=== PATIENT | male | born 1970 ===

== ENCOUNTER 2024-11-21 08:40 | Outpatient (AMB) | payer OTHER, SELFPAY ==
--- NOTE | 2024-11-21 08:49 | A.OFFVIS_ITS ---
Vital Signs 11/21/24 08:50 Height 5 ft 6 in Weight 135 lb BMI 21.8 BP 114/84 Blood Pressure Location Rt brachial Position Sitting Pulse 82 Pulse Source Pulse Oximeter Pulse Oximetry (%) 98 Intake Visit Reasons: ENP-Restless leg Syndrome Intake Note: Patient referred by [facility] for restless leg syndrome Allergies No Known Allergies Allergy (Verified 11/21/24 08:51) Medication List - Last Reconciled 11/21/24 by Kathi Mejia MD acetaminophen mg PO albuterol sulfate 90 mcg/actuation (Ventolin HFA) inhalation alendronate mg PO calcium carbonate-vitamin D3 500 mg-10 mcg (400 unit) (Calcium 500 With D) tabs PO cholecalciferol (vitamin D3) (Vitamin D3) 100 mcg PO DAILY diclofenac sodium 1% topical nicotine (polacrilex) mg PO oxybutynin chloride ER mg PO DAILY HPI Comments Details: 54y/o Right handed female comes for evaluation of possible restless legs syndrome. she reports abnormal sensations in her legs - numbness everytime she sits or lies down . she denies tingling. sometimes she has discomfort in her thighs. No creepy crawly sensation. Moving her legs helps. It is worse when she sleeps and she needs to have a pillow between her legs and it wake she rup often she has daytime fatigue she is not sure if she snores. she has chronic back pain and some neck pain . she denies any abnormal jerks in her legs when she wakes up in the middle of the night - she tries to move her legs and hands and tries to sleep. she has frequent urination and urgency . [facility] Medical History (Updated 11/21/24 @ 09:23 by Kathi Mejia MD) Spinal stenosis, other region Back pain Hyperreflexia Numbness Restless leg syndrome Osteoporosis Chronic midline back pain Hyperparathyroidism Vitamin D deficiency Tobacco abuse Surgical History History of tonsillectomy and adenoidectomy History of right salpingo-oophorectomy H/O section History of cataract surgery Hx of cholecystectomy Family History Father HTN (hypertension) Diabetes Social History Alcohol intake: current Comment: occasional Patient Tobacco Use Status: Current everyday Tobacco user Physical Exam Vital Signs: Last Vital Signs Pulse 82 11/21/24 08:50 BP 114/84 11/21/24 08:50 Pulse Ox 98 11/21/24 08:50 BMI result Body Mass Index 21.8 Const General: cooperative, healthy appearing and comfortable Nutritional Appearance: average body habitus Orientation/consciousness: patient oriented x3 Eyes Pupils: Equal, round and reactive pupils present Neuro Other: neck tightness Increased one monica LE and right UE Mallampatti grade 4 General: patient oriented x3, gait normal, moves all extremities and no focal motor deficits Cranial nerves: Yes Equal, round and reactive pupils present, Yes Bilaterally intact EOM present, Yes Nystagmus not present, Yes Normal facial strength present, Yes Midline tongue present and Yes Symmetric palate elevation present Cognition (Neuro): normal cognition Gait exam (Neuro): Normal gait present Motor exam (neuro): 5/5 motor strength present throughout Deep tendon reflexes (DTR's): Right triceps reflex intensity grade: 3+, Left triceps reflex intensity grade: 3+, Rt Biceps (C5, C6): 3+, Left biceps reflex intensity grade: 3+, Right brachioradialis reflex intensity grade: 3+, Left brachioradialis reflex intensity grade: 3+, Right patellar reflex intensity grade: 4+, Left patellar reflex intensity grade: 4+, Right ankle reflex intensity grade: 4+ and Left ankle reflex intensity grade: 4+ Coordination: [id number] test normal Assessment & Plan Assessment & Plan (1) Numbness: Code(s): R20.0 - Anesthesia of skin Category: Medical (2) Hyperreflexia: Code(s): R29.2 - Abnormal reflex Category: Medical (3) Back pain: Code(s): M54.9 - Dorsalgia, unspecified Category: Medical Qualifiers: Back pain location: low back pain Chronicity: chronic Back pain laterality: midline Sciatica presence: without sciatica Qualified Code(s): M54.50 - Low back pain, unspecified; G89.29 - Other chronic pain Plan MRI LS spine to r/o spinal stenosis ? cauda equina syndrome X ray C spine Will consider EMG LE Home sleep study next visit. Orders: Orders XR cervical spine 2V Today M54.2 - Cervicalgia MR lumbar spine wo con Today G89.29 - Other chronic pain, M48.00 - Spinal stenosis, site unspecified, M54.50 - Low back pain, unspecified, R20.0 - Anesthesia of skin, R29.2 - Abnormal reflex Coding Level of Care Code New Pt Level 4 (69726) Complex EM visit Add On G2211 Diagnoses Numbness R20.0 Hyperreflexia R29.2 Chronic midline low back pain without sciatica M54.50; G89.29 Back pain location: low back pain Chronicity: chronic Back pain laterality: midline Sciatica presence: without sciatica
[2024-11-21 08:50] VITALS: BP 114/84; PULSE 82; O2SAT 98; BMI 21.8
--- OUTSIDE RECORDS SUMMARY | 2024-11-21 09:12 | XMS_ITS | Encounter Summary ---
Author Organization [facility] Address [address] [place] [address] Care Team Providers Care Motor Vehicle Escort Driver Name Role Phone Vinny Davalos MD Primary Care Provider [phone] Reason for Visit * Consultation (Routine) - Authorized Specialty Diagnoses / Procedures Referred By Contwilly t Referred To Contact Physical Therapy Diagnoses Chronic midline low back pain, unspecified whether sciatica present Vinny Davalos MD 175 [facility] [address] [place] [address] Phone: tel: fax: [address] [address] Phone: tel: fax: Referral ID Status Reason Start Date Expiration Date Visits Requested Visits Authorized [id number] Authorized Specialty Services Required 10/11/2024 10/11/2025 21 21 Encounter Details Date Type Department Care Team (Late st Contact Info) Description 11/08/2024 11:00 AM EST Treatment [facility] [address] [address] Lorna Marquis PT Chronic midline low back pain, unspecified whether sciatica present (Primary Dx) Social History Tobacco Use Types Packs/Day Years Used Date Smoking Tobacco: Every Day Cigarettes Smokeless Tobacco: Never Alcohol Use Standard Drinks/Week Comments Yes 0 (1 standard drink = 0.6 oz pur e alcohol) rare Comments No Sex and Gender Information Value Date Recorded Sex Assigned at Female 10/20/2024 12:09 PM EST Legal Sex Female 5:14 AM EST Gender Identity Female 10/20/2024 12:09 PM EST Sexual Orientation Straight 10/20/2024 12 :09 PM EST Occupation Industry Job Start Date Job End Date Unemplloyed Not on file Not on file Not on file documented as of this encounter Progress Notes * Lorna Marquis PT - 11/08/2024 11:00 AM EST [facility] - Outpatient PHYSICAL THERAPY DAILY TREATMENT NOTE - OP Date: 11/08/2024 Visit Number: 2 Patient Name: Lizabeth Pittman : 1970 Age: 53 y.o. Gender: female Diagnosis: ICD-10-CM ICD-9-CM 1. Chronic midline low back pain, unspecified whether sciatica present M54.50 724.2 G89.29 338.29 Date of Onset/Surgery: 11/02/2014 Referring Provider: Vinny Davalos MD Insurance: Payor: [employer] PLAN / Plan: WELLSENSE MEDICAID / Product Type: *No Product type* / Patient Identified by: Lorna Marquis, SEAN Language: Speaks and understands Bengali as preferred language with no language interpreter required Medications: Current Outpatient Medications on File Prior to Visit Medication Sig Dispense Refill acetaminophen (TYLENOL) 500 mg tablet Take 1 tablet (500 mg total) by mouth every 6 (six) hours if needed for mild pain. 90 tablet 3 albuterol HFA (PROAIR HFA ; PROVENTIL HFA ; VENTOLIN HFA) 90 mcg/actuation inhaler Inhale 2 puffs by mouth every 6 (six) hours if needed for wheezing or shortness of breath (Cough). For up to 30 days alendronate (FOSAMAX) 70 mg tablet Take 1 tablet (70 mg total) by mouth every 7 (seven) days. For 360 days 4 each 11 calcium carbonate-vitamin D3 500 mg-15 mcg (600 unit) tablet Take 1 tablet by mouth 2 (two) times aday. 180 tablet 3 cholecalciferol (VITAMIN D-3) 50 mcg (2,000 unit) tablet Take 1 tablet (2,000 Units total) by mouth1 (one) time each day. diclofenac (VOLTAREN) 1 % topical gel Apply 2 g topically 2 (two) times a day. 100 g 3 nicotine polacrilex (NICORETTE) [address] EACH (4 MG TOTAL) INTO MOUTH BETWEEN CHEEK AND GUMIF NEEDED FOR SMOKING CESSATION. 100 each 3 oxyBUTYnin XL (DITROPAN-XL) 5 mg 24 hr tablet Take 1 tablet (5 mg total) by mouth 1 (one) time eachday. Do not crush, chew, or split. 30 tablet 5 No current facility-administered medications on file prior to visit. Allergies: has No Known Allergies. Precautions: osteoporosis Fall risk: No SUBJECTIVE Subjective Report: Patient reports soreness in back due to increased activity the past few days. Chart Reviewed: Yes Pain: 6-7/ pre session, 2-3 post session TREATMENT INTERVENTION: Therapeutic Exercise: Nustep L4 x 5 min lower extremity and upper extremity Supine bridge x 5 with 1-2 sec hold, x 10 with 5 sec hold Sidelying hip abduction x 8-10 each Seated hip adduction ball x 10, 5 sec hold Modality: IFC e-stim to bilateral low back (amplitude to tolerance=7) x 10 min Home exercise program: Sidelying hip abduction x 7-10 each Supine bridge x 10, 5 sec hold ASSESSMENT/Response to Treatment Good Pain reduced after e-stim applied. Needed cueing for sidelying hip abduction form. Discussed difference of strain vs. Pain with exercises. Patient Education: Education provided: home exercise program and monitor e-stim response Education Provided To: Patient utilizing Explanation mode(s) of education Response to Education: Verbal Understanding PLAN POC Development/Review: No Change in the Plan of Care; Participants: Patient Interventions Time Entry: Modalities: 10 min Therapeutic procedures: Therapeutic Exercise Time Entry: 20 Total Treatment Time: 30 Documentation completed by Lorna Marquis PT documented in this encounter Plan of Treatment Upcoming Encounters Date Type Department Care Team (Late st Contact Info) Description 11/22/2024 11:00 AM EST Treatment [facility] [address] [phone] Turner Piper PTA 11/29/2024 11:00 AM EST Treatment [facility] [address] [phone] Rizwan Duncan, ACID MAKER 12/06/2024 11:00 AM EDT Treatment [facility] [address] [address] Rizwan Duncan, ACID MAKER 12/13/2024 11:00 AM EDT Treatment [facility] [address] [address] Lorna Marquis, PT 01/23/2025 10:[address] [facility] [address] [place] [address] 01/23/2025 11:15 AM EDT Appointment [facility] [address] [place] [address] 10/16/2025 11:30 AM EST Office Visit Internal Medicine [address] [address] Vinny Davalos MD [address] [address] documented as of this encounter Visit Diagnoses Diagnosis Chronic midline low back pain, unspecified whether sciatica present- Primary documented in this encounter Additional Health Concerns Infection Onset Date Last Indicated Resolved Time ESBL 09/14/2024 09/14/2024 documented as of this encounter Care Teams Motor Vehicle Escort Driver Relationship Specialty Start Date End Date Vinny Davalos MD [address] [place] [address] PCP - General Internal Medicine 04/25/22 documented as of this encounter
--- OUTSIDE RECORDS SUMMARY | 2024-11-21 09:12 | XMS_ITS | Encounter Summary ---
Author Organization [facility] Address [address] [place] [address] Care Team Providers Care Squirt Machine Operator Name Role Phone Vinny Davalos MD Primary Care Provider [phone] Reason for Visit * Consultation (Routine) - Authorized Specialty Diagnoses / Procedures Referred By Contwilly t Referred To Contact Physical Therapy Diagnoses Chronic midline low back pain, unspecified whether sciatica present Vinny Davalos MD 175 [facility] [address] [place] [address] Phone: tel: fax: [address] [address] Phone: tel: fax: Referral ID Status Reason Start Date Expiration Date Visits Requested Visits Authorized [id number] Authorized Specialty Services Required 10/11/2024 10/11/2025 21 21 Encounter Details Date Type Department Care Team (Late st Contact Info) Description 11/15/2024 11:00 AM EST Treatment [facility] [address] [phone] Lorna Marquis PT Chronic midline [...] Progress Notes * Lorna Marquis PT - 11/15/2024 11:00 AM EST [facility] - Outpatient PHYSICAL THERAPY DAILY TREATMENT NOTE - OP Date: 11/15/2024 Visit Number: 3 Patient Name: Lizabeth Pittman : 1970 Age: 53 y.o. Gender: female Diagnosis: ICD-10-CM ICD-9-CM 1. Chronic midline low back pain, unspecified whether sciatica present M54.50 724.2 G89.29 338.29 Date of Onset/Surgery: 11/02/2014 Referring Provider: Vinny Davalos MD Insurance: Payor: [employer] PLAN / Plan: WELLSENSE MEDICAID / Product Type: *No Product type* / Patient Identified by: Lorna Marquis, SEAN Language: Speaks and understands Mohawk as preferred language with no yarn twister required Medications: Current Outpatient Medications on File [...] Fall risk: No SUBJECTIVE Subjective Report: Patient notes pain has not been bad this past week. Feels better. Chart Reviewed: Yes Pain: 10/07 TREATMENT INTERVENTION: Therapeutic Exercise: Nustep L5 x 5 min lower extremity and upper extremity Supine bridge x 10 with 5 sec hold Sidelying hip abduction x 10 each Hooklying hamstring stretch strap 3 x 15 sec hold Hooklying hip adduction ball x 10, 5 sec hold Modality: IFC e-stim to bilateral low back (amplitude to tolerance=7) x 10 min Home exercise program: Sidelying hip abduction x 7-10 each Supine bridge x 10, 5 sec hold Hooklying hamstring stretch strap (dog leash) 3 x 15-20 sec ASSESSMENT/Response to Treatment Good Less pain this past week, so continued similar treatment as last session. Min cueing for form with sidelying hip abduction. Patient Education: Education provided: home exercise program and monitor e-stim response Education Provided To: Patient utilizing Explanation and Printed Material mode(s) of education Response to Education: Verbal [...] Info) Description 11/22/2024 11:00 AM EST Treatment [facility] [address] [phone] Turner Piper, CHERRY PITTER 11/29/2024 11:00 AM EST Treatment [facility] [address] [address] Rizwan Duncan, CHERRY PITTER 12/06/2024 11:00 AM EDT Treatment [facility] [address] [phone] Rizwan Duncan, CHERRY PITTER 12/13/2024 11:00 AM EDT Treatment [address] [address] Lorna Marquis, PT 01/23/2025 10:30 AM EDT Appointment [facility] [address] [place] [address] 01/23/2025 11:15 AM EDT Appointment [facility] [address] [place] [address] 10/16/2025 11:30 AM EST Office Visit Internal Medicine [address] [phone] Vinny Davalos MD [address] [address] documented as of this encounter Visit Diagnoses Diagnosis Chronic midline low back pain, unspecified whether sciatica present- Primary documented in this encounter Additional Health Concerns Infection Onset Date Last Indicated Resolved Time ESBL 09/14/2024 09/14/2024 documented as of this encounter Care Teams Squirt Machine Operator Relationship Specialty Start Date End Date Vinny Davalos MD [address] [place] [address] PCP - General Internal Medicine 04/25/22 documented as of this encounter
--- OUTSIDE RECORDS SUMMARY | 2024-11-21 09:12 | XMS_ITS | Data Portability ---
Author Organization [place] [facility], Allergy Address [address] [address] Care Team Providers Care Electroplater Helper Name Role Phone FALGUNI JOYNER Primary Care Provider [phone] Assessment Encounter Date Assessment Date Assessment LastModified by Organization Details LastModified Time 06/06/2024 06/06/2024 53-year-old female presents today for ear blockage and concern for cerumen. A small amount of cerumen was removed. Middle ears were well aerated. Audiometric testing showed a mild sensorineural hearing loss with type A tymps. We did discuss that tobacco use can also contribute to a feeling of ear blockage. I would recommend repeat exam in a year with audiogram in 2 years or sooner for acute change. [email or web address] Not available 06/12/2024 07:16:17 Plan of Treatment Reminders Order Date Submit Date Provider Last Modified By Organization Details Last Modified Time Details Appointments Establish ed 15 2024 09:00A M SAMREEN STRONG MD Not available Not available Not available Lab None recorded. Referral None recorded. Procedures None recorded. Surgeries None recorded. Imaging None recorded. Medication Orders None recorded. Patient TargetsNo targets recorded. Patient InstructionsNo instructions recorded. Reason for Referral None Reported. Results Created Date Observation Date Name Description Value Unit Range Abnormal Flag Note LastModifiedBy Organization Detail LastModifiedTime 07/04/2006/06/2024 audio gram No observ ation record ed. [email or web address] Not Available 06/28 11:53:11 Result Notes None recorded. Problems Name Problem SNOMED Code Status Onset Date Resolution Date Notes Provider Name and Address Organization Details Recorded Time Sensorineural hearing loss of bilateral ears 058737419 Active 2023 NIKOLE VALENCIA , AUD 100 [facility], [address], [place], [address], [facility] - [facility] 09:57:57 Problem Notes None recorded. Procedures Surgical History Date Name Laterality Status Provider Name and Address Organization Details Recorded Time 06/06/2024 Comp Audio with Tymps (39486 & 68249) completed NIKOLE VALENCIA, AUD 100 [facility] [address], [place], [address], [facility] - [facility] 06/06/2024 09:57:41 Imaging Results Imaging Date Name Status LastModified by Organiz ation Details LastModified Time 06/06/2024 audiogram completed [email or web address] Information n ot available 07/08/2024 11:53:11 Procedure Notes None recorded. Medical Equipment None Reported. Medications Name Sig Start Date Stop Date Status Note LastModified by Organization Details LastModified Time acetaminophe n 325 mg tablet TAKE 1 TABLET BY MOUTH EVERY 6 HOURS FOR MILD PAIN. active Not Available Not Available N ot Available alendronate 70 mg tablet TAKE 1 TABLET BY MOUTH EVERY 7 DAYS FOR 360 DAYS. active Not Available Not Available No t Available Debrox 6.5 % ear drops PLEASE SEE ATTACHED FOR DETAILED DIRECTIONS active Not Available Not Available N ot Available ketorolac 0.5 % eye drops active Not Available Not Available Not Available nicotine 21 mg/24 [address] daily transdermal patch [address] PATCH ONTO THE SKIN EVERY 24 HOURS active Not Available Not Available No t Available docusate sodium 100 mg capsule TAKE 1 CAPSULE BY MOUTH ONCE A DAY.*NOT COVERED* active Not Available Not Available No t Available ibuprofen 600 mg tablet TAKE 1 TABLET BY MOUTH EVERY 6 HOURS. MAX IS 2400MG A DAY. active Not Available Not Available No t Available fluticasone propionate 50 mcg/actuatio n nasal spray,suspen amparo SPRAY 2 SPRAYS INTO EACH NOSTRIL EVERY DAY active Not Available Not Available No t Available loratadine 10 mg tablet active Not Available Not Available Not Available Ventolin HFA 90 mcg/actuatio n aerosol inhaler PLEASE SEE ATTACHED FOR DETAILED DIRECTIONS active Not Available Not Available N ot Available oxycodone 5 mg tablet TAKE 1 TABLET BY MOUTH EVERY 4 HOURS NEEDED FOR MODERATE PAIN SCALE OF 4-6. active Not Available Not Available No t Available Vitamin D3 50 mcg (2,000 unit) tablet TAKE 1 TABLET BY MOUTH EVERY DAY active Not Available Not Available No t Available Oyster Shell Calcium-Irais min D3 500 mg-10 mcg (400 unit) tablet TAKE 1 TABLET BY MOUTH TWICE A DAY active Not Available Not Available No t Available Vitals Date Recorded Body height Body mass index (BMI) Body weight Provider Name and Address Organization Details Last Updated DateTime 06/06/2024 167.64 cm 20.7 kg/m2 93041.82 g Evangelista Casper [place] - [facility] 06/06/2024 09:10:15 Social History None recorded. Functional Status None recorded. Mental Status None recorded. Family History Nothing Reported. Medical History Condition Response Allergies/Hayfever N Gynecological HistoryNo gynecological history recorded. Obstetrics History GPAL:G 0 P 0 0 0 0 Past Encounters Encounter ID Performer Location Encounter Start Date Encounter Closed Date Diagnosis/Indication Diagnosis SNOMED-CT Code Diagnosis ICD10 Code Diagnosis Note [id number] SAMREEN STRONG MD [facility] [address] [address] 06/06/2024 08:57:13 06/06/2024 10:22:26 Sensorineural hearing loss of bilateral ears 253316427 H90.3 Audiologic al evaluation results: Right ear: {{Normal* Normal through 2 kHz Mild M oderate Mo derately-s evere Natalie re Profoun d}} {{hearing sloping to a mild* slop ing to a moderate s loping to moderately severe slo ping to severe slo ping to profound f lat high frequency low frequency mid frequency cookie bite gomes curve}} {{with sen sorineural hearing loss with* cond uctive hearing loss with mixed hearing loss with}} {{excellen t* good fa ir poor no measurable }} word recognitio n. Left ear: {{Normal* Normal through 2 kHz Mild M oderate Mo derately-s evere Natalie re Profoun d}} {{hearing sloping to a mild* slop ing to a moderate s loping to moderately severe slo ping to severe slo ping to profound f lat high frequency low frequency mid frequency cookie bite gomes curve}} {{with sen sorineural hearing loss with* cond uctive hearing loss with mixed hearing loss with}} {{excellen t* good fa ir poor no measurable }} word recognitio n. Tympanomet ry: Right Ear:{{Type A* Type As Type Ad Type C Type C, shallow & rounded Ty pe B Type B with large volume Cou ld not maintain a hermetic seal}} Left Ear:{{Type A* Type As Type Ad Type C Type C, shallow & rounded Ty pe B Type B with large volume Cou ld not maintain a hermetic seal}} Health Concerns Section Related Observation LastModified by Organization Detai ls LastModified Time None Recorded Concern Status LastModified by Organization Details LastModified Time None Recorded Advance Directives Directive None Recorded Payers Encounter Date Sequence Insurance Name Policy Number Policy Phan Covered Member ID Phan Member ID Guarantor Name 06/06/2024 1 [facility] (MEDICAID REPLACEMENT - HMO) [facility] Lizabeth Pittman [id number] Lizabeth Pittman Notes Date Note Type Note Provider Name and Address Organization Details Recorded Time 06/06/2024 text/html 53 yo F with frequent blockage of the ears. Gets some dizziness when it is blocked. Denies frequent infections. Occasional tinnitus. Occasional trouble with hearing. No allergies. SAMREEN STRONG MD [address] [place] [address], [phone], [place] - [facility] 06/12/2024 07:16:21 OBGyn Episode No OBEpisode recorded.
--- OUTSIDE RECORDS SUMMARY | 2024-11-21 09:12 | XMS_ITS | Encounter Summary ---
Author Organization [facility] Address [address] [place] [address] Care Team Providers Care Locomotive Engineer Diesel Name Role Phone Vinny Davalos MD Primary Care Provider [phone] Reason for Visit * Consultation (Routine) - Authorized Specialty Diagnoses / Procedures Referred By Contwilly t Referred To Contact Physical Therapy Diagnoses Chronic midline low back pain, unspecified whether sciatica present Vinny Davalos MD 175 [facility] [address] [place] [address] Phone: tel: fax: [address] [address] Phone: tel: fax: Referral ID Status Reason Start Date Expiration Date Visits Requested Visits Authorized [id number] Authorized Specialty Services Required 10/11/2024 10/11/2025 21 21 Encounter Details Date Type Department Care Team (Latest Contact Info) Description 11/02/2024 11:30 AM EST Evaluation [address] [address] Lorna Marquis PT Chronic midline [...] Progress Notes * Lorna Marquis PT - 11/02/2024 11:30 AM EST [facility] - Outpatient PHYSICAL THERAPY EVALUATION Date: 11/02/2024 Visit Number: 1 Patient Name: Lizabeth Pittman : 1970 Age: 53 y.o. Gender: female Diagnosis: ICD-10-CM ICD-9-CM 1. Chronic midline low back pain, unspecified whether sciatica present M54.50 724.2 Ambulatory referral to Physical Therapy and Athletic Training G89.29 338.29 Date of Onset/Surgery: 11/02/2014 Referring Provider: Vinny Davalos MD Insurance: Payor: [employer] PLAN / Plan: [employer] MEDICA[employer] / Product Type: *No Product type* / Patient identified by: Lorna Marquis PT Language: Speaks and understands Micronesian as preferred language with no produce inspector required Chart Reviewed: Yes Medications: Current Outpatient Medications on File Prior [...] facility-administered medications on file prior to visit. Discussed current medications that may impact therapy. Medication list obtained and reviewed. Referto document in medical record. Advised Patient to contact MD with any questions regarding medications and importance of managing medication information. has a past medical history of Hyperparathyroidism ([facility]) (10/08/2022), Osteoporosis, Ovarian torsion (2023), Tobacco abuse (09/19/2010), and Vitamin D deficiency (12/23/2022). has a past surgical history that includes Section; Tubal ligation; Cholecystectomy; and Other surgical history (Right, 04/10/2024). has No Known Allergies. Precautions: osteoporosis Past Medical History to be aware of: Smoker Concurrent Services: No Concurrent Services SUBJECTIVE HISTORY: Patient presents to clinic with low back pain that began many years ago. Went to PT for this in the past for this over 10 years ago, which helped. She reports having osteoporosis, diagnosed 2-3 years ago (takes medication for this). She also reports having scoliosis which she was diagnosedwith as an adult. She does note she does not eat much. COURSE OF CURRENT CONDITION: worse PREVIOUS EPISODES: yes PREVIOUS MEDICAL CARE/THERAPY: patches- allergic, ice- short term effective, previous PT (electrodes helped a lot) PREVIOUS SURGERIES: see epic (no back surgeries) DIAGNOSTIC TESTS: bone density- osteoporosis RED FLAGS: no bowel/bladder incontinence reported OCCUPATION: none LEISURE/ACTIVITY LEVEL: play son tablet, clean house, watch TV, shopping once a week; denies general exercise; used to walk dog but that was hurting her back because he was yanking her (stopped in June) GOALS: get more exercise Home Environment: , son, daugther can help heavier lifting Prior Level of Function: less pain Current Functional Limitations: Reported by Patient limited with prolonged standing, prolonged sitting, prolonged walking, bending Pain: Current level of pain 3/10; Pain at worst over the past week 7/10 and at best is a 0/10 Pain/symptoms described as: bad ache Pain is located: whole lower back; does get bilateral leg numbness and legs feel like they might give out Aggravating factors include: prolonged standing or prolonged sitting >30 min, prolonged walking (especially after shopping), bending over (laundry and wood stove) Easing factors include: ice 2x a week, sitting at first, prescribed medication like tylenol as needed, laying on back Is the patient at Risk for Falls: No OBJECTIVE Vitals: There were no vitals filed for this visit.; Gait: amb unassisted, bilateral toe in Posture/Observation: flat lumbar spine, scapular winging bilaterally Palpation: tenderness and rigidity of lower thoracic and upper lumbar paraspinals bilaterally Lumbar Spine ROM Active Lumbar flexion (0-60) Mid stover pulling in back Lumbar extension (0-35) 50% P Lumbar side bending R (0-25) 50-75% P Lumbar side bending L (0-25) 50-75% P Lumbar Rotation R (0-20) 75% limited P Lumbar Rotation L (0-20) 25% limited P Hip ROM: Flexion R 100 deg P, L 90 deg P ER R min limited P, L moderate limited P IR moderate limited P bilaterally Hip Strength RIGHT LEFT Flexion 4+/5 P 4+/5 P Extension bridge/5 bridge/5 Abduction 4-/5 4-/5 Adduction NT/5 NT/5 Internal Rotation 4+/5 4+/5 External Rotation 4/5 4/5 Special Tests: - straight leg raise + hamstring 90-90 bilateral Other Assessments: 6 min walk test 1050 feet, 2/10 pain, O2 sat 100 and HR 72 post test TREATMENT INTERVENTION Procedures: Sidelying hip abduction x 10 each Supine bridge x 10, 1-2 sec hold Home exercise program: Above exercises to be done once a day, daily ASSESSMENT/Response to Treatment: Lizabeth Pittman is a 53 y.o. female presenting for outpatient physical therapy evaluation with complaints of chronic mid/low back pain. Signs and symptoms may be related to degenerative changes and/ormyofascial. Significant clinical findings include: decreased lumbar ROM, decreased hip ROM, and reduced core/hip strength. Patients progress may be limited by nutrition and smoking history. Skilled Physical therapy is medically necessary to address these limitations. Rehabilitation Potential: Rehab Potential: Condition Has Potential to Improve Motivation for Rehab: Good Support Structure: Good Learning Needs: Were Patient Learning needs assessed: Yes Learning Preferences: Demonstration and Printed Materials Barriers to Learning: No Barriers to Learning Patient Education: [x] Discussed, with patient and/or caregiver, the recommended plan of care/goals, the importance oftherapy and appointment compliance in order to achieve goals in a timely manner. Education provided: home exercise program and plan of care Education Provided To: Patient utilizing Explanation and Printed Material as mode(s) of education. Response to Education: Verbal Understanding and Demonstrated Skills GOALS Short Term Goals (will be achieved in 4 weeks) 1. Initiate home exercise program. 2. Pain will be improved by 2-3 points on VAS. 3. Patient will improve core/hip strength by 1/3 grade on manual muscle testing. 4. Patient will improve lumbar ROM by 25%. Gastroenterology Nurse Goals (will be achieved in 8-12 weeks) 1. Patient will be independent with home exercise program to maintain therapeutic gains. 2. Patient will be able to walk around grocery store with min to no pain 3. Patient will be able to sit for 60 min with min to no pain. PLAN POC Development/Review: Initial Evaluation; Participants: Patient Skilled Therapy Plan Required: YES- Reasons for Rehab and Medical Necessity -- Return to Premorbid Environment Frequency/Duration of Treatment: patient can only attend 1x a week for 6 weeks or until goals are met Plan for next session(s): Nustep, core/hip strengthening in safe positions for osteoporosis, gentlelumbar/hip ROM. Planned Therapy Interventions: Cold Pack, E-Stim -- Unattended, Gait Training, Hot Pack, Kinesiotaping, Manual Therapy, Neuromuscular Re-education, Patient / Family Education, Soft Tissue Mobility, TENS, Therapeutic Activity, Therapeutic Exercise, and Ultrasound Recommended Consults: none Equipment Recommended: none; Equipment Provided: none BILLING TOTAL TREATMENT TIME: 46 Minutes Evaluation Medium Complexity Justification ::: A history of present problem with 1 - 2 personal factors and/or co-morbidities that impact the plan of care and An examination of body systems using standardized tests and measures in addressing a total of 3 or more elements from any of the following body structures and functions, activity limitations, and/or participation restrictions Documentation completed by Lorna Marquis PT [address] [address] Dept: [phone] Dept PATIENT NAME: Lizabeth Pittman : 1970 Certification: This is to certify that the above named patient, who is under my care, requires skilled Therapy services as described in the above treatment plan. I further certify that the services outlined in this plan are skilled and medically necessary. I have reviewed this plan for rehabilitation services, and I recommend that these services continue to meet the above stated goals and plan. SIGNATURE: DATE Vinny Davalos MD Referring provider documented in this encounter Plan of Treatment Upcoming Encounters Date Type Department Care Team (Late st Contact Info) Description 11/22/2024 11:00 AM EST Treatment [address] [phone] Turner Piper, SOLAR SALES REP 11/29/2024 11:00 AM EST Treatment [address] [address] Rizwan Duncan, [employer] SALES REP 12/06/2024 11:00 AM EDT Treatment [facility] [address] [address] Rizwan Duncan, [employer] SALES REP 12/13/2024 11:00 AM EDT Treatment [address] [address] Lorna Marquis, PT 01/23/2025 10:30 AM EDT Appointment [facility] [address] [place] [address] 01/23/2025 11:15 AM EDT Appointment [facility] [address] [place] [phone] 10/16/2025 11:30 AM EST Office Visit Internal Medicine - [place] 175 [facility] [address] [place] [id number] Vinny Davalos MD 175 [facility] [address] [place] [address] documented as of this encounter Visit Diagnoses Diagnosis Chronic midline low back pain, unspecified whether sciatica present- Primary documented in this encounter Orders Outpatient Referral Count Last Ordered Date Fir st Ordered Date AMB REFERRAL TO PHYSICAL [facility] 1 11/02/2024 documented in this encounter Additional Health Concerns Infection Onset Date Last Indicated Resolved Time ESBL 09/14/2024 09/14/2024 documented as of this encounter Care Teams Locomotive Engineer Diesel Relationship Specialty Start Date End Date Vinny Davalos MD [address] [place] [address] PCP - General Internal Medicine 04/25/22 documented as of this encounter
--- OUTSIDE RECORDS SUMMARY | 2024-11-21 09:12 | XMS_ITS | Clinical Summary ---
Author Organization 175 [facility] Address [address] [place] [address] Phone Care Team Providers Care Packaging Specialist Name Role Phone Vinny Davalos MD Primary Care Provider Allergies No known active allergies Medications cholecalciferol (VITAMIN D-3) 50 mcg (2,000 unit) tablet Take 1 tablet (2,000 Units total) by mouth 1 (one) time each day. 4 Active albuterol HFA (PROAIR HFA ; PROVENTIL HFA ; VENTOLIN HFA) 90 mcg/actuation inhaler Inhale 2 puffs by mouth every 6 (six) hours if needed for wheezing or shortness of breath (Cough). For up to 30 days Active oxyBUTYnin XL (DITROPAN-XL) 5 mg 24 hr tabletIndicatio ns:OAB (overactive bladder) Take 1 tablet (5 mg total) by mouth 1 (one) time each day. Do not crush, chew, or split. 30 tablet 5 4 09/14/20 25 Active alendronate (FOSAMAX) 70 mg tablet Take 1 tablet (70 mg total) by mouth every 7 (seven) days. For 360 days 4 each 11 5 10/06/19 26 Active calcium carbonate-vitam in D3 500 mg-15 mcg (600 unit) tablet Take 1 tablet by mouth 2 (two) times a day. 180 tablet 3 5 10/11/19 26 Active diclofenac (VOLTAREN) 1 % topical gel Apply 2 g topically 2 (two) times a day. 100 g 3 5 04/09/20 25 Active acetaminophen (TYLENOL) 500 mg tablet Take 1 tablet (500 mg total) by mouth every 6 (six) hours if needed for mild pain. 90 tablet 3 5 04/09/20 25 Active nicotine polacrilex (NICORETTE) [address] 1 EACH (4 MG TOTAL) INTO MOUTH BETWEEN CHEEK AND GUM IF NEEDED FOR SMOKING CESSATION. 100 each 3 5 12/11/19 25 Active Active Problems Problem Noted Date Diagnosed Date Post-menopausal osteoporosis 09/14/2024 Tobacco abuse 07/04/2024 Restless leg syndrome 10/09/2023 Vitamin D deficiency 12/23/2022 Hyperparathyroidism 10/08/2022 Dyspepsia 06/17/2022 Overview (07/04/2024): Last Assessment & Plan: Complaint of abdominal pain after greasy food especially pizza. No belching or heartburn, weight loss or weakness. Pain is colicky in nature and resolved by its own. Plan: Start famotidine 40 mg daily Refer the patient for ultrasonography to rule out any gallstone. Stool for H. Pylori. Encounters Date Type Department Care Team Description 11/15/2024 11:00 AM EST Treatment [address] [phone] Lorna Marquis, PT Chronic midline low back pain, unspecified whether sciatica present (Primary Dx) 11/08/2024 11:00 AM EST Treatment [address] [phone] Lorna Marquis, PT Chronic midline low back pain, unspecified whether sciatica present (Primary Dx) 11/02/2024 11:30 AM EST Evaluation [address] [phone] Lorna Marquis, PT Chronic midline low back pain, unspecified whether sciatica present (Primary Dx) 10/11/2024 11:30 AM EST Office Visit Internal Medicine [address] [phone] Vinny Davalos MD Encounter for annual physical exam (Primary Dx); Chronic midline low back pain, unspecified whether sciatica present; Colon cancer screening; Encounter for screening mammogram for malignant neoplasm of breast; Encounter for osteoporosis screening in asymptomatic postmenopausal patient; Hyperparathyroidism (CMS/HCC); Vitamin D deficiency; Tobacco abuse; Other abnormal glucose; Encounter for lipid screening for cardiovascular disease; Other fatigue; Osteoporosis, unspecified osteoporosis type, unspecified pathological fracture presence; Tobacco dependency; Restless leg syndrome 10/10/2024 10:30 AM EST Office Visit Pulmonolgy - [place] 175 [facility] [address] [place] [phone] Katt Espino MD Chronic obstructive pulmonary disease, unspecified COPD type (CMS/HCC) (Primary Dx); Smoker; Lung nodules 09/19/2024 Telephone Obstetrics & Gynecology [facility] [address] [place] [phone] Aneta Antoine MA Results 09/14/2024 11:15 AM EST Office Visit Obstetrics & Gynecology [facility] [address] [place] [phone] Latrice Jaquez CNM Encounter for well woman exam with routine gynecological exam (Primary Dx); UTI symptoms; Screening breast examination; Screening for malignant neoplasm of cervix; Post-menopausal osteoporosis; OAB (overactive bladder) from Last 3 Months Immunizations Name Administration Dates Next Due PPD Test 02/27/2014 Tdap Tetanus diptheria acell ular pertussis (Boostrix; Adacel) 7yo and older 04/07/2023,06/02/2007 Surgical History Surgery Date Site/Laterality Comments SECTION PROCEDURE: HISTORICAL ; COMMENT: x one TUBAL LIGATION PROCEDURE: HISTORICAL TUBAL LIGATION CHOLECYSTECTOMY PROCEDURE: HISTORICAL CHOLECYSTECTOMY OTHER SURGICAL HISTORY 04/10/2024 Right PROCEDURE: NE SALPINGO-OOPHORECTOMY COMPL/PRTL UNI/BI SPX; COMMENT: Laparoscopic right Dr Yonatan Barraza Medical History Medical History Date Comments Hyperparathyroidism (CMS/HCC) 10/08/2022 DX :Hyperparathyroidism (HCC) Vitamin D deficiency 12/23/2022 DX:Vitamin D deficiency Tobacco abuse 09/19/2010 DX:Tobacco abuse ; COMMENT: Trying to quit as of 02/2014; changed to e cigarettes Ovarian torsion 2023 Osteoporosis Family History Medical History Relation Name Comments Breast cancer Aunt 1 pat great Colon cancer Aunt 2 maternal Diabetes Father Hypertension Father PASSED IN 2019 LAVON disease Sister 1 Irritable bowel syndrome Sister 1 LAVON disease Sister 2 Intellectual Disability Son 1 Ovarian cancer Neg Hx Relation Name Status Comments Aunt 1 Aunt 2 Aunt 3 Daughter Alive Father Maternal Grandfather Maternal Grandmother Mother Alive thyroid problem s, seizures, Paternal Grandfather Paternal Grandmother Sister 1 Alive Sister 2 Alive Son 1 Alive Son 2 Alive Social History Tobacco Use Types Packs/Day Years Used Date Smoking Tobacco: Every Day Cigarettes Smokeless Tobacco: Never Tobacco Cessation:Ready to Q uit: Not Asked; Counseling Given: Not Answered Alcohol Use Standard Drinks/Week Comments Yes 0 [...] file Not on file Not on file Obstetrics History Para Term AB IAB SAB Ectopic Multiple Livin g Live Births 4 3 3 1 1 3 3 Date Outcome GA Total Labor Labor/2nd/3rd Weight Sex Type Anes PTL Fransisca A1 A5 Name Clin Term M CS-Un spec Living Term M Living Term F Living SAB Last Filed Vital Signs Vital Sign Reading Time Taken Comments Blood Pressure 116/73 10/11/2024 11:26 AM EST Pulse 91 10/11/2024 11:26 AM EST Temperature 36.5 ??C (97.7 ??F) 10/11/2024 11:[address] Respiratory Rate 19 10/10/2024 10:24 AM EST Oxygen Saturation 98% 10/11/2024 11:26 AM EST Inhaled Oxygen Concentration - - Weight 59.9 kg (132 lb) 10/11/2024 11:26 AM EST Height 167.6 cm (5' 6 ) 10/11/2024 11:26 AM EST Body Mass Index 21.31 10/11/2024 11:26 AM EST Plan of Treatment Upcoming Encounters Date Type Department Care Team (Late st Contact Info) Description 11/22/2024 11:00 AM EST Treatment [address] [phone] Turner Piper, AVIONICS INTEGRATION ENGINEER 11/29/2024 11:00 AM EST Treatment [address] [phone] Rizwan Duncan, AVION[employer] INTEGRATION ENGINEER 12/06/2024 11:00 AM EDT Treatment [address] [phone] Rizwan Duncan, AVIONICS INTEGRATION ENGINEER 12/13/2024 11:00 AM EDT Treatment [address] [phone] Lorna Marquis, PT 01/23/2025 10:30 AM EDT Appointment [facility] Bone Density [address] [place] [phone] 01/23/2025 11:15 AM EDT Appointment [facility] [address] [place] [phone] 10/16/2025 11:30 AM EST Office Visit Internal Medicine [address] [phone] Vinny Davalos MD [address] [phone] Health Maintenance Due Date Last Done Comments Hepatitis A Vaccines (1 of 2 - Risk 2-dose series) 1987 Hepatitis B Vaccines (1 of 3 - 19+ 3-dose series) 1987 Pneumococcal Vaccine: 50+ Years (1 of 2 - PCV) 1987 Pneumococcal Vaccine: Pediatrics (0 to 5 Years) and At-Risk Patients (6 to 64 Years) (1 of 2 - PCV) 1987 Zoster Vaccines (1 of 2) 2018 Colorectal Cancer Screening: Stool Based Tests (FOBT/FIT) 09/07/2022 HIV Screening 09/07/2022 COVID-19 Vaccine (3 - 2023-2 5 season) 2024 08/16/2021, 07/26/2021 Influenza Vaccine (#1) 2024 Breast Cancer Screening 04/08/2025 04/08/2023 Depression Screening 10/11/2025 10/11/2024 Social Influencers of Health Screening 10/11/2025 10/11/2024 Cervical Cancer Screening: HPV 09/14/2029 1 11/15/2023, 03/07/2014 Cholesterol Screening (Lipid Panel) 10/11/2029 10/11/2024, 06/17/2022 DTaP,Tdap,and Td Vaccines (3 - Td or Tdap) 04/07/2033 04/07/2023, 06/02/2007 Osteoporosis Screening (Bone Density Screening) 05/27/2033 05/27/2023 Hepatitis C Screening Completed 06/17/2022 HIB Vaccines Aged Out No longer eligi ble based on patient's age to complete this topic HPV Vaccines Aged Out No longer eligi ble based on patient's age to complete this topic IPV Vaccines Aged Out No longer eligi ble based on patient's age to complete this topic MMR Vaccines Aged Out No longer eligi ble based on patient's age to complete this topic Meningococcal ACWY Vaccine Aged Out N o longer eligible based on patient's age to complete this topic Meningococcal B Vacine Aged Out No lo nger eligible based on patient's age to complete this topic RSV Immunization Patients Under 20 months Aged Out No longer eligible b ased on patient's age to complete this topic Varicella Vaccines Aged Out No longer eligible based on patient's age to complete this topic Procedures Procedure Name Priority Date/Time Associated Diagnosis Comments CBC WITH AUTO DIFFERENTIAL Routine 10/11/2024 12:22 PM EST Encounter for annual physical exam Other fatigue PARATHYROID HORMONE INTACT Routine 10/11/2024 12:22 PM EST Vitamin D deficiency Hyperparathyroidism (CMS/HCC) MAGNESIUM Routine 10/11/2024 12:22 PM EST Encounter for annual physical exam THYROID STIMULATING HORMONE WITH REFLEX TO FREE T4 AND FREE T3 Routine 10/11/2024 12:22 PM EST Encounter for annual physical exam Other fatigue VITAMIN D 25 HYDROXY Routine 10/11/2024 12:22 PM EST Encounter for annual physical exam Vitamin D deficiency LIPID PANEL WITH REFLEX TO DIRECT LDL Routine 10/11/2024 12:22 PM EST Encounter for annual physical exam Encounter for lipid screening for cardiovascular disease COMPREHENSIVE METABOLIC PANEL Routine 10/11/2024 12:22 PM EST Encounter for annual physical exam VITAMIN B12 Routine 10/11/2024 12:22 PM EST Encounter for annual physical exam Other fatigue HEMOGLOBIN A1C Routine 10/11/2024 12:22 PM EST Encounter for annual physical exam Other abnormal glucose CBC AND DIFFERENTIAL Routine 10/11/2024 12:22 PM EST Encounter for annual physical exam Other fatigue CULTURE URINE Routine 09/14/2024 11:31 AM EST UTI symptoms Encounter for well woman exam with routine gynecological exam PAP SMEAR Routine 09/14/2024 11:15 AM EST Encounter for well woman exam with routine gynecological exam Screening for malignant neoplasm of cervix HPV WITH REFLEX GENOTYPE Routine 09/14/2024 11:15 AM EST Encounter for well woman exam with routine gynecological exam Screening for malignant neoplasm of cervix POC URINE AUTO W/O MICRO Routine 09/14/2024 11:11 AM EST UTI symptoms DXA BONE DENSITY STUDY 1+ SITS AXIAL SKEL Routine 05/27/2023 11:17 AM EDT Hyperparathyroidism, unspecified (CMS/HCC) SCREENING MAMMOGRAPHY BI 2-VIEW BREAST INC CAD Routine 04/08/2023 9:28 AM EDT Epigastric pain Calculus of gallbladder without cholecystitis without obstruction Encounter for general adult medical examination without abnormal findings HM HEPATITIS C SCREENING Routine 06/17/2022 from Last 3 Months or Most Recently Relevant to Health Maintenance Results * Thyroid stimulating hormone with reflex to free t4 and free t3 (10/11/2024 12:22 PM EST) [facility] TSH 1.02 0.40 - 4.00 mcIU/mL LAB CHEMISTRY METHOD 10/11/2024 3:32 PM [facility] Blood Venous blood specimen / Unknown Venipuncture / Unknown 10/11/2024 12:22 PM EST 10/11/2024 12:22 PM EST Vinny Davalos MD LAB BLOOD ORDERABLES Final Resul t [facility] [address] [place] [address], [place] [phone] * Lipid panel with reflex to direct LDL (10/11/2024 12:22 PM EST) [facility] Cholesterol 167 0 - 200 mg/dL LAB CHEMISTRY METHOD 10/11/2024 4:05 PM [facility] Triglycerides 97 0 - 150 mg/dL LAB CHEMISTRY METHOD 10/11/2024 4:05 PM [facility] HDL 49 >=40 mg/dL LAB CHEMISTRY METHOD 10/11/2024 4:05 PM [facility] LDL Calculated 99 0 - 100 mg/dL LAB CHEMISTRY METHOD 10/11/2024 4:05 PM [facility] VLDL Cholesterol Layo 19.4 mg/dL LAB CHEMISTRY METHOD 10/11/2024 4:05 PM [facility] Non HDL Chol. (LDL+VLDL) 118 <145 mg/dL LAB CHEMISTRY METHOD 10/11/2024 4:05 PM [facility] Chol/HDL Ratio 3.4 0.0 - 4.4 LAB CHEMISTRY METHOD 10/11/2024 4:05 PM [facility] Blood Venous blood specimen / Unknown Venipuncture / Unknown 10/11/2024 12:22 PM EST 10/11/2024 12:22 PM EST Vinny Davalos MD LAB BLOOD ORDERABLES Final Resul t [facility] [address] [place] [address], * (ABNORMAL) CBC auto differential (10/11/2024 12:22 PM EST) WBC 8.7 4.8 - 10.8 K/mcL LAB HEMETOLOGY METHOD 10/11/2024 2:25 PM EST [facility] RBC 4.90(H) 3.80 - 4.80 M/mcL LAB HEMETOLOGY METHOD 10/11/2024 2:25 PM [facility] Hemoglobin 15.6 11.5 - 16.0 g/dL LAB HEMETOLOGY METHOD 10/11/2024 2:25 PM [facility] Hematocrit 47.0 35.0 - 47.0 % LAB HEMETOLOGY METHOD 10/11/2024 2:25 PM [facility] MCV 95.7 79.0 - 98.0 FL LAB HEMETOLOGY METHOD 10/11/2024 2:25 PM [facility] MCH 31.8 27.0 - 32.0 pcg LAB HEMETOLOGY METHOD 10/11/2024 2:25 PM [facility] MCHC 33.2 32.0 - 37.0 g/dL LAB HEMETOLOGY METHOD 10/11/2024 2:25 PM [facility] RDW 12.4 11.0 - 15.0 % LAB HEMETOLOGY METHOD 10/11/2024 2:25 PM [facility] Platelets 318 130 - 400 K/mcL LAB HEMETOLOGY METHOD 10/11/2024 2:25 PM [facility] MPV 11.5(H) 7.0 - 11.0 FL LAB HEMETOLOGY METHOD 10/11/2024 2:25 PM [facility] NRBC 0.0 <1.0 % LAB HEMETOLOGY METHOD 10/11/2024 2:25 PM [facility] NRBC Absolute 0.00 <0.10 K/mcL LAB HEMETOLOGY METHOD 10/11/2024 2:25 PM [facility] Neutrophils Relative 62.2 % LAB HEMETOLOGY METHOD 10/11/2024 2:25 PM [facility] Lymphocytes Relative 27.7 % LAB HEMETOLOGY METHOD 10/11/2024 2:25 PM [facility] Monocytes Relative 8.7 % LAB HEMETOLOGY METHOD 10/11/2024 2:25 PM [facility] Eosinophils Relative 0.8 % LAB HEMETOLOGY METHOD 10/11/2024 2:25 PM [facility] Basophils Relative 0.3 % LAB HEMETOLOGY METHOD 10/11/2024 2:25 PM [facility] Immature Granulocytes Relative 0.3 % LAB HEMETOLOGY METHOD 10/11/2024 2:25 PM [facility] Neutrophils Absolute 5.39 1.50 - 7.00 K/mcL LAB HEMETOLOGY METHOD 10/11/2024 2:25 PM [facility] Lymphocytes Absolute 2.40 1.00 - 5.00 K/mcL LAB HEMETOLOGY METHOD 10/11/2024 2:25 PM [facility] Monocytes Absolute 0.75 0.20 - 1.00 K/mcL LAB HEMETOLOGY METHOD 10/11/2024 2:25 PM [facility] Eosinophils Absolute 0.07 0.00 - 0.50 K/mcL LAB HEMETOLOGY METHOD 10/11/2024 2:25 PM EST [facility] Basophils Absolute 0.03 0.00 - 0.20 K/mcL LAB HEMETOLOGY METHOD 10/11/2024 2:25 PM EST [facility] Immature Granulocytes Absolute 0.03 0.00 - 0.03 K/mcL LAB HEMETOLOGY METHOD 10/11/2024 2:25 PM EST [facility] Blood Venous blood specimen / Unknown Venipuncture / Unknown 10/11/2024 12:22 PM EST 10/11/2024 12:22 PM EST Vinny Davalos MD LAB BLOOD ORDERABLES Final Resul t [facility] [address] [place] [address], [place] [phone] * Vitamin D 25 hydroxy (10/11/2024 12:22 PM EST) Vit D, 25-Hydroxy 57.0 30.0 - 80.0 ng/mL LAB CHEMISTRY METHOD 10/11/2024 3:32 PM EST [facility] Blood Venous blood specimen / Unknown Venipuncture / Unknown 10/11/2024 12:22 PM EST 10/11/2024 12:22 PM EST Vinny Davalos MD LAB BLOOD ORDERABLES Final Resul t [facility] [address] [place] [address], [place] [phone] * Parathyroid hormone intact (10/11/2024 12:22 PM EST) PTH 50.4 18.5 - 88.0 pcg/mL LAB CHEMISTRY METHOD 10/11/2024 5:32 PM EST [facility] Blood Venous blood specimen / Unknown Venipuncture / Unknown 10/11/2024 12:22 PM EST 10/11/2024 12:22 PM EST us Vinny Davalos MD LAB BLOOD ORDERABLES Final Resul t Performing Organization Address City/[facility]/ZIP Co de Phone Number [facility] [address] [place] [address], [place] [phone] * Magnesium (10/11/2024 12:22 PM EST) [facility] Magnesium 2.0 1.9 - 2.6 mg/dL LAB CHEMISTRY METHOD 10/11/2024 3:32 PM EST [facility] Blood Venous blood specimen / Unknown Venipuncture / Unknown 10/11/2024 12:22 PM EST 10/11/2024 12:22 PM EST Vinny Davalos MD LAB BLOOD ORDERABLES Final Resul t Performing Organization Address [facility] Co de Phone Number [facility] [address] [place] [address], [place] [phone] * Hemoglobin A1c (10/11/2024 12:22 PM EST) [facility] Hemoglobin A1C 5.1 <6.5 % LAB CHEMISTRY METHOD 10/11/2024 9:23 PM EST [facility] Mean Bld Glu Estim. 100 mg/dL LAB CHEMISTRY METHOD 10/11/2024 9:23 PM EST [facility] Blood Venous blood specimen / Unknown Venipuncture / Unknown 10/11/2024 12:22 PM EST 10/11/2024 12:22 PM EST us Vinny Davalos MD LAB BLOOD ORDERABLES Final Resul t Performing Organization Address [facility]/ZIP Co de Phone Number [facility] [address] [place] [address], [place] [phone] * Vitamin B12 (10/11/2024 12:22 PM EST) [facility] Vitamin B-12 348 250 - 900 pcg/mL LAB CHEMISTRY METHOD 10/11/2024 4:05 PM [facility] Blood Venous blood specimen / Unknown Venipuncture / Unknown 10/11/2024 12:22 PM EST 10/11/2024 12:22 PM EST Vinny Davalos MD LAB BLOOD ORDERABLES Final Resul t [facility] [address] [place] [address], [place] [phone] * (ABNORMAL) Comprehensive metabolic panel (10/11/2024 12:22 PM EST) [facility] Sodium 136 133 - 145 mmol/L LAB CHEMISTRY METHOD 10/11/2024 4:05 PM [facility] Potassium 4.1 3.5 - 5.5 mmol/L LAB CHEMISTRY METHOD 10/11/2024 4:05 PM [facility] Chloride 104 96 - 110 mmol/L LAB CHEMISTRY METHOD 10/11/2024 4:05 PM [facility] CO2 27 21 - 32 mmol/L LAB CHEMISTRY METHOD 10/11/2024 4:05 PM [facility] Anion Gap 5 3 - 11 LAB CHEMISTRY METHOD 10/11/2024 4:05 PM [facility] Glucose 102(H) 70 - 100 mg/dL LAB CHEMISTRY METHOD 10/11/2024 4:05 PM [facility] BUN 10 5 - 25 mg/dL LAB CHEMISTRY METHOD 10/11/2024 4:05 PM [facility] Creatinine 0.75 0.50 - 1.10 mg/dL LAB CHEMISTRY METHOD 10/11/2024 4:05 PM [facility] eGFR 94 >=60 mL/min/1. 73m2 LAB CHEMISTRY METHOD 10/11/2024 4:05 PM [facility] Comment:Calculation based on the??Chronic Kidney Disease Epidemiology Collaboration (CKD-EPI) equation refit??without adjustment for race. BUN/Creatinine Ratio 13.3 LAB CHEMISTRY METHOD 10/11/2024 4:05 PM [facility] Calcium 11.6(H) 8.5 - 10.5 mg/dL LAB CHEMISTRY METHOD 10/11/2024 4:05 PM [facility] AST (SGOT) 9(L) 10 - 42 unit/L LAB CHEMISTRY METHOD 10/11/2024 4:05 PM [facility] ALT (SGPT) 13 10 - 60 unit/L LAB CHEMISTRY METHOD 10/11/2024 4:05 PM [facility] Alkaline Phosphatase 67 42 - 121 unit/L LAB CHEMISTRY METHOD 10/11/2024 4:05 PM [facility] Total Protein 7.7 6.0 - 8.0 g/dL LAB CHEMISTRY METHOD 10/11/2024 4:05 PM [facility] Albumin 4.4 3.2 - 5.0 g/dL LAB CHEMISTRY METHOD 10/11/2024 4:05 PM [facility] Total Bilirubin 0.5 0.0 - 1.4 mg/dL LAB CHEMISTRY METHOD 10/11/2024 4:05 PM [facility] Blood Venous blood specimen / Unknown Venipuncture / Unknown 10/11/2024 12:22 PM EST 10/11/2024 12:22 PM EST us Vinny Davalos MD LAB BLOOD ORDERABLES Final Resul t [facility] [address] [place] [address], * (ABNORMAL) Culture urine (09/14/2024 11:31 AM EST) Culture, Urine 50,000-100,000 CFU/mL Escherichia coli ESBL(A) MARIA ELENA 09/17/2024 9:32 AM EST [facility] Comment: Edited result: Previously reported as Escherichia coli on 09/16/2024 at 1012 EST. Urine Urine specimen obtained by clean catch procedure / Unknown Non-blood Collection / Unknown 09/14/2024 11:31 AM EST 09/14/2024 4:05 PM EST Narrative Organism Antibiotic Method Susceptibility Escherichia coli ESBL Amoxicillin/Clavulanate MARIA ELENA >=32 ug/ml: Resistant Escherichia coli ESBL Ampicillin/Sulbactam MARIA ELENA 16 ug/ml: Intermediate Escherichia coli ESBL Piperacillin/Tazobactam MARIA ELENA <=4 ug/ml: Susceptible Escherichia coli ESBL Cefazolin (Urine) MARIA ELENA >=32 ug/ml: Resistant Escherichia coli ESBL Cefoxitin MARIA ELENA 32 ug/ml: Resistant Escherichia coli ESBL Ceftazidime MARIA ELENA 8 ug/ml: Intermediate Escherichia coli ESBL Ceftriaxone MARIA ELENA 32 ug/ml: Resistant Escherichia coli ESBL Cefepime MARIA ELENA <=0.12 ug/ml: Susceptible Escherichia coli ESBL Meropenem MARIA ELENA <=0.25 ug/ml: Susceptible Escherichia coli ESBL Amikacin MARIA ELENA 2 ug/ml: Susceptible Escherichia coli ESBL Gentamicin MARIA ELENA <=1 ug/ml: Susceptible Escherichia coli ESBL Ciprofloxacin MARIA ELENA <=0.06 ug/ml: Susceptible Escherichia coli ESBL Levofloxacin MARIA ELENA <=0.12 ug/ml: Susceptible Escherichia coli ESBL Nitrofurantoin MARIA ELENA <=16 ug/ml: Susceptible Escherichia coli ESBL Trimethoprim/Sulfa methoxazol e MARIA ELENA <=20 ug/ml: Susceptible Latrice Jaquez CNM LAB MICROBIOLOGY - GENERAL OR DERABLES Final Result [facility] [address] [place] [address], * HPV with reflex genotype (09/14/2024 11:15 AM EST) HPV Negative Negative LAB MICROBIOLOGY METHOD 09/15/2024 1:33 PM EST [facility] Brushing/Spatula Cervix uteri structure / Unknown 09/14/2024 11:15 AM EST 09/15/2024 7:29 AM EST Latrice Jaquez CNM LAB MOLECULAR DIAGNOSTICS ORD ERABLES Final Result [facility] [address] [place] [address], * Pap Smear (09/14/2024 11:15 AM EST) Interpretation Negative for intraepithelial lesion or malignancy 09/20/2024 10:39 AM [facility] General Categorization Negative 09/20/2024 10:39 AM [facility] Other Findings Atrophy 09/20/2024 10:39 AM [facility] Specimen Adequacy Satisfactory for evaluation 09/20/2024 10:39 AM [facility] Pap Methodology Liquid Based Pap Test 09/20/2024 10:39 AM [facility] Disclaimer The Pap test is a screening test which carries an inherent false negative rate. These test results should be correlated with the patient's clinical findings and history. This Pap test was processed using an automated screening system. Technical cytopathology services provided by [facility], at [address] [place] [address] (CLIA # [id number]/Gretchen Escamilla MD, Umbrella Cutter.) 09/20/2024 10:39 AM [facility] Console Pap Interpretation Reported 09/20/2024 10:39 AM [facility] Brushing/Spatula Cervix uteri structure / Unknown 09/14/2024 11:15 AM EST 09/15/2024 7:29 AM EST Latrice Jaquez CNM LAB CYTOLOGY ORDERABLES Final Result [facility] [address] [place] [address], * (ABNORMAL) POC Urine Auto W/O Micro (09/14/2024 11:11 AM EST) Leukocytes UA POC Positive(A) Negative Nitrite UA POC Negative Negative Urobilinogen UA POC Negative Negative Protein UA POC Positive(A) Negative PH UA POC 8.0 5.0 - 9.0 Blood UA POC Trace Negative, Trace Specific [place] UA POC 1.010 1.001 - 1.035 Ketones UA POC 1+(A) Negative Bilirubin UA POC Negative Negative Glucose UA POC Normal Normal, Trace Urine Urine specimen obtained by clean catch procedure / Unknown 09/14/2024 11:11 AM EST Latrice MORALES POINT OF CARE TEST ENTER/EDIT ORDERABLES Final Result * DXA BONE DENSITY STUDY 1+ SITS AXIAL SKEL (05/27/2023 11:17 AM EDT) Anatomical Region Laterality Modality Bone Densitometr y 12/31/2022 9:19 AM EDT Narrative 05/27/2023 12:34 PM EDT BONE DENSITY (DEXA) ? Lumbar Spine T-score is -3.2. ?? (SD relative to 20-29 y/o adult) Z-score is -2.2. ??(SD relative to age matched peers) This is considered osteoporosis by WHO criteria. Left Hip T-score is -2.8. Z-score is -2.2. This is considered osteoporosis by WHO criteria. Left Forearm T-score is -4.2. Z-score is -3.3. This is considered osteoporosis by WHO criteria. IMPRESSION: This patient is considered to have osteoporosis by WHO criteria. The [facility] Department of Internal Medicine recommends using National Osteoporosis Foundation (NOF) guidelines in treatment decisions related to osteoporosis. NOF guidelines suggest considering treatment for postmenopausal women and men aged 50 or older presenting with the following: History of hip or vertebral fracture. T-score = -2.5 (DXA) at the femoral neck, total hip, or spine, after appropriate evaluation to exclude secondary causes. Low bone mass (T-score between -1.0 and -2.5 at the femoral neck or spine) AND a 10-year probability of a hip fracture = 3% OR a 10-year probability of a major osteoporosis-related fracture = 20% based on the [place]-adapted WHO algorithm Please note that all treatment decisions require clinical judgment and consideration of individual patient factors, including patient preferences, co-morbidities, previous drug use, risk factors not captured in the FRAX model (e.g., frailty, falls, vitamin D deficiency, increased bone turnover, interval significant decline in bone density) and possible under- or over-estimation of fracture risk by FRAX. Optional alternative screening schedule based on darwin Macdonald., [facility] October 16, 2011 for patients with osteopenia (based on hip BMD T-score) is as follows: * ??advanced osteopenia (T scores -2.00 to -2.49), BMD testing every year * ??moderate osteopenia (T scores -1.50 to -1.99), BMD testing every 5 years mild osteopenia or normal BMD (T scores -1.50 and higher), BMD testing every 15 years Procedure Note Cara Lopez MD - 11/02/2023 BONE DENSITY (DEXA) Lumbar Spine T-score is -3.2. (SD relative to 20-29 y/o adult) Z-score is -2.2. (SD relative to age matched peers) This is considered osteoporosis by WHO criteria. Left Hip T-score is -2.8. Z-score is -2.2. This is considered osteoporosis by WHO criteria. Left Forearm T-score is -4.2. Z-score is -3.3. This is considered osteoporosis by WHO criteria. IMPRESSION: This patient is considered to have osteoporosis by WHO criteria. The [facility] Department of Internal Medicinerecommends using National Osteoporosis Foundation (NOF) guidelines in treatment decisionsrelated to osteoporosis. NOF guidelines suggest considering treatment forpostmenopausal women and men aged 50 or older presenting with the following: History of hip or vertebral fracture. T-score = -2.5 (DXA) at the femoral neck, total hip, or spine, afterappropriate evaluation to exclude secondary causes. Low bone mass (T-score between -1.0 and -2.5 at the femoral neck or spine)AND a 10-year probability of a hip fracture = 3% OR a 10-year probability of a majorosteoporosis-related fracture = 20% based on the [place]-adapted WHO algorithm Please note that all treatment decisions require clinical judgment andconsideration of individual patient factors, including patient preferences, co- morbidities,previous drug use, risk factors not captured in the FRAX model (e.g., frailty, falls, vitaminD deficiency, increased bone turnover, interval significant decline in bone density) andpossible under- or over-estimation of fracture risk by FRAX. Optional alternative screening schedule based on lety Macdonald al., [place] 2011 for patients with osteopenia (based on hip BMD T-score) is as follows: * advanced osteopenia (T scores -2.00 to -2.49), BMD testing every year * moderate osteopenia (T scores -1.50 to -1.99), BMD testing every 5years mild osteopenia or normal BMD (T scores -1.50 and higher), BMD testingevery 15 years Kiana Dugan MD IMG DXA PROCEDURES Final Result * SCREENING MAMMOGRAPHY BI 2-VIEW BREAST INC CAD (04/08/2023 9:28 AM EDT) Anatomical Region Laterality Modality Radiographic Malia ging 06/17/2022 10:2 4 AM EDT Narrative 04/08/2023 12:30 PM EDT This is a summary report. The complete report is available in the patient's medical record. If you cannot access the medical record, please contact the sending organization for a detailed fax or copy. Full field digital screening tomosynthesis mammography, reviewed with CAD and compared to previous. The breasts are composed of fatty and fibroglandular tissue. ??No suspicious mass, architectural distortion or suspicious calcifications are identified. IMPRESSION: : No mammographic evidence of malignancy. BIRADS 1-Negative; N. 5 year breast cancer risk assessment 1.0 % Lifetime breast cancer risk assessment 7.5 % Breast cancer risk category Low (<15%) Procedure Note Hunter David MD - 11/02/2023 This is a summary report. The complete report is available in thepatient's medical record. If you cannot access the medical record, pleasecontact the sending organization for a detailed fax or copy. Full field digital screening tomosynthesis mammography, reviewed with CADand compared to previous. The breasts are composed of fatty andfibroglandular tissue. No suspicious mass, architectural distortion orsuspicious calcifications are identified. IMPRESSION: : No mammographic evidence of malignancy. BIRADS 1-Negative; N. 5 year breast cancer risk assessment 1.0 % Lifetime breast cancer risk assessment 7.5 % Breast cancer risk category Low (<15%) Vinny Davalos MD IMG XR PROCEDURES Final Result * Hepatitis C Screening (06/17/2022) Hepatitis C Screening Abstracted Historical Provider HEALTH MAINTENANCE Final Result from Last 3 Months or Most Recently Relevant to Health Maintenance Additional Health Concerns Infection Onset Date Last Indicated ESBL 09/14/2024 09/14/2024 Insurance [facility] [place] [address] Care Teams Packaging Specialist Relationship Specialty Start Date End Date Vinny Davalos MD [address] [place] [address] PCP - General Internal Medicine 04/25/22
== END 2024-11-21 09:27 | disposition home or self-care (01) ==
PROVIDERS: PCP Student in an Organized Health Care Education/Training Program; Visit Provider Psychiatry & Neurology Neurology
DX: R20.0 Anesthesia of skin (principal); R29.2 Abnormal reflex; M54.50 Low back pain, unspecified; G89.29 Other chronic pain
CPT/HCPCS: 99204; G2211

== ENCOUNTER → 2024-11-21 08:40 | Outpatient (BNVA) | payer OTHER, SELFPAY | PROVIDERS: PCP Student in an Organized Health Care Education/Training Program; Visit Provider Psychiatry & Neurology Neurology | DX: G25.81 Restless legs syndrome (principal); R40.0 Somnolence; R20.0 Anesthesia of skin; R29.2 Abnormal reflex; M54.50 Low back pain, unspecified; G89.29 Other chronic pain | CPT/HCPCS: 99202 ==

== ENCOUNTER → 2024-11-29 13:47 | Outpatient (BNV) | payer OTHER, SELFPAY | PROVIDERS: PCP Student in an Organized Health Care Education/Training Program; Visit Provider Radiology Diagnostic Radiology | DX: K21.9 Gastro-esophageal reflux disease without esophagitis (principal) | CPT/HCPCS: 72148 ==

== ENCOUNTER 2024-11-29 13:51 | Outpatient (REF) | payer OTHER, SELFPAY ==
--- NOTE | ~2024-11-29 | MR_ITS ---
EXAMINATION: MR LUMBAR SPINE WITHOUT CONTRAST CLINICAL INFORMATION: Abnormal reflux COMPARISON: None available. TECHNIQUE: MRI of the lumbar spine was obtained using routine sequences without contrast. FINDINGS: Last rib-bearing vertebra labeled T12. Bone marrow inhomogeneity. There is mild bone marrow STIR signal in the endplates of L4-5, decreased intervertebral disc height and subchondral cyst formation. Multilevel marginal osteophyte formation more conspicuous at L1 to and L4-5 level. Focal hyperintense T2 signal in the posterior intervertebral discs from L2-3 to L4-5 likely annular fissures. Grade 1 retrolisthesis L1 to, L2-3 and L3-4 levels. Conus medullaris ends at pedicle of L1 with normal signal. T12-L1: There is left Subarticular broad-based disc herniation. No compression upon neural elements. L1-2: Broad-based disc bulging. Facet joint hypertrophy. Reduced AP diameter of the thecal sac. No compression upon neural elements. L2-3: Right subarticular disc protrusion. Facet joint and ligamentum flavum hypertrophy. Reduced AP diameter of the thecal sac and the neural foramina. L3-4: Broad-based disc bulging. Facet joint hypertrophy. Reduced AP diameter of the thecal sac and the neural foramina likely encroaching the neural elements. L4-5: Broad-based disc bulging. Facet joint and ligamentum flavum hypertrophy. Reduced AP diameter of the thecal sac and the neural foramina encroaching the neural elements both thecal sac and the exiting nerve roots. L5-S1: Broad-based disc bulging. Facet joint hypertrophy. Reduced AP diameter of the thecal sac and the neural foramina. There is a 4 cm isointense T1 and T2 mass in the left retroperitoneum just anterior to the lower pole left kidney and below the left renal vessels. There is a 2.2 cm nodule in the right adrenal gland. There is a 1.9 cm nodule in the left adrenal gland. Cystic lesions in the kidneys. . MR/MR lumbar spine wo con IMPRESSION: Multilevel lumbar spondylosis resulting in grade 1 retrolisthesis L1 to, L2-3 and L3-4 levels and central spinal canal and bilateral neuroforamina stenosis at L4-5, L3-4 and to a lesser extent L2-3 likely encroaching the neural elements. Left-sided retroperitoneal mass and nodular lesions in the adrenal glands. Malignancy should be considered. A [employer] message delivered and received to the requesting physician Dr. Kathi Mejia on November 29, 2024 at 2:55 PM Electronically signed by: Loki Webster MD 11/29/2024 02:57 PM NAVEEN
--- OUTSIDE RECORDS SUMMARY | 2024-11-29 17:31 | XMS_ITS | Encounter Summary ---
Author Organization [facility] Address [address] [place] [address] Care Team Providers Care Clinical Microbiologist Name Role Phone Vinny Davalos MD Primary Care Provider [phone] Reason for Visit * Consultation (Routine) - Authorized Specialty Diagnoses / Procedures Referred By Contwilly t Referred To Contact Physical Therapy Diagnoses Chronic midline low back pain, unspecified whether sciatica present Vinny Davalos MD 175 [facility] [address] [place] [address] Phone: tel: fax: [facility] [address] [address] Phone: tel: fax: Referral ID Status Reason Start Date Expiration Date Visits Requested Visits Authorized [id number] Authorized Specialty Services Required 10/11/2024 10/11/2025 21 21 Encounter Details Date Type Department Care Team (Late st Contact Info) Description 11/29/2024 11:00 AM EST Treatment [facility] [address] [address] Rizwan Duncan, BOX WORKER Arrived Social History Tobacco Use Types Packs/Day Years [...] as of this encounter Progress Notes * Rizwan Duncan PTA - 11/29/2024 11:00 AM EST [facility] - Outpatient PHYSICAL THERAPY DAILY TREATMENT NOTE - OP Date: 11/29/2024 Visit Number: 5 Patient Name: Lizabeth Pittman : 1970 Age: 54 y.o. Gender: female Diagnosis: No diagnosis found. Date of Onset/Surgery: 11/02/2014 Referring Provider: Vinny Davalos MD Insurance: Payor: [employer] PLAN / Plan: WE[employer] MEDICAID / Product Type: *No Product type* / Patient Identified by: Rizwan Duncan PTA Language: Speaks and understands Qatari as preferred language with no science interpreter required Medications: Current Outpatient Medications on [...] risk: No SUBJECTIVE Subjective Report: Patient reports cont pain in her lower back Chart Reviewed: Yes Pain: 04/06 TREATMENT INTERVENTION: Nustep L5 x 5 min lower extremity only Supine bridge x 10 with 5 sec hold with hip add Standing hip flexor and hamstring stretch 3x 20 sec hold each in cage Sktc x3 Piriformis stretching x3 Ltr x30 Supine marching x20 Barrel rolling supine to sitting due to sxs H/L abd bracing wi t-band hip abd x20 blue Pt deferred estim to do more exercises Home exercise program: Sidelying hip abduction x 7-10 each Supine bridge x 10, 5 sec hold Hooklying hamstring stretch strap (dog leash) 3 x 15-20 sec ASSESSMENT/Response to Treatment Good has mri scheduled for today Patient Education: Education provided: home exercise program Education Provided To: Patient utilizing Explanation and Printed Material mode(s) of education Response to Education: Verbal Understanding PLAN POC Development/Review: No Change in the Plan of Care; Participants: Patient Interventions Time Entry: Therapeutic procedures: 30 Therapeutic Exercise Time Entry: 30 Total Treatment Time: 30 Documentation completed by Rizwan Duncan PTA documented in this encounter Plan of Treatment Upcoming Encounters Date Type Department Care Team (Late st Contact Info) Description 12/06/2024 11:00 AM EDT Treatment [facility] [address] [address] Rizwan Duncan PTA 12/13/2024 11:00 AM EDT Treatment [facility] [address] [address] Lorna Marquis, PT 01/23/2025 10:30 AM EDT Appointment [facility] [address] [place] [address] 01/23/2025 11:15 AM EDT Appointment [facility] [address] [place] [address] 10/16/2025 11:30 AM EST Office Visit Internal Medicine - [place] 175 [facility] [address] [place] [address] Vinny Davalos MD [address] [address] documented as of this encounter Visit Diagnoses Not on filedocumented in this encounter Additional Health Concerns Infection Onset Date Last Indicated Resolved Time ESBL 09/14/2024 09/14/2024 documented as of this encounter Care Teams Clinical Microbiologist Relationship Specialty Start Date End Date Vinny Davalos MD [address] [place] [id number] PCP - General Internal Medicine 04/25/22 documented as of this encounter
--- OUTSIDE RECORDS SUMMARY | 2024-11-29 17:31 | XMS_ITS | Encounter Summary ---
Author Organization [facility] Address [address] [place] [address] Care Team Providers Care Electrical Appliance Mechanic Name Role Phone Vinny Davalos MD Primary Care Provider [phone] Reason for Visit * Consultation (Routine) - Authorized Specialty Diagnoses / Procedures Referred By Contwilly t Referred To Contact Physical Therapy Diagnoses Chronic midline low back pain, unspecified whether sciatica present Vinny Davalos MD 175 [facility] [address] [place] [address] Phone: tel: fax: [address] [address] Phone: tel: fax: Referral ID Status Reason Start Date Expiration Date Visits Requested Visits Authorized [id number] Authorized Specialty Services Required 10/11/2024 10/11/2025 21 21 Encounter Details Date Type Department Care Team (Late st Contact Info) Description 11/15/2024 11:00 AM EST Treatment [facility] [address] [address] Lorna Marquis PT Chronic midline [...] Marquis PT - 11/15/2024 11:00 AM EST [facility] - Outpatient PHYSICAL THERAPY DAILY TREATMENT NOTE - OP Date: 11/15/2024 Visit Number: 3 Patient Name: Lizabeth Pittman : 1970 Age: 53 y.o. Gender: female Diagnosis: ICD-10-CM ICD-9-CM 1. Chronic midline low back pain, unspecified whether sciatica present M54.50 724.2 G89.29 338.29 Date of Onset/Surgery: 11/02/2014 Referring Provider: Vinny Davalos MD Insurance: Payor: [employer] PLAN / Plan: WE[employer]ENSE MEDICAID / Product Type: *No Product type* / Patient Identified by: Lorna Marquis, SEAN Language: Speaks and understands Barbadian as preferred language with no montessori lead teacher required Medications: Current Outpatient Medications on File [...] Info) Description 12/06/2024 11:00 AM EDT Treatment [address] [address] Rizwan Duncan PTA 12/13/2024 11:00 AM EDT Treatment [facility] [address] [address] Lorna Marquis, PT 01/23/2025 10:30 AM EDT Appointment [facility] [address] [place] [address] 01/23/2025 11:15 AM EDT Appointment [facility] [address] [place] [address] 10/16/2025 11:30 AM EST Office Visit Internal Medicine - [place] 175 [facility] [address] [place] [address] Vinny Davalos MD [address] [address] documented as of this encounter Visit Diagnoses Diagnosis Chronic midline low back pain, unspecified whether sciatica present- Primary documented in this encounter Additional Health Concerns Infection Onset Date Last Indicated Resolved Time ESBL 09/14/2024 09/14/2024 documented as of this encounter Care Teams Electrical Appliance Mechanic Relationship Specialty Start Date End Date Vinny Davalos MD [address] [place] [address] PCP - General Internal Medicine 04/25/22 documented as of this encounter
--- OUTSIDE RECORDS SUMMARY | 2024-11-29 17:31 | XMS_ITS | Clinical Summary ---
Author Organization 175 [facility] Address [address] [place] [address] Phone Care Team Providers Care Beam Dyer Recessed Vat Name Role Phone Vinny Davalos MD Primary Care Provider [phone] Allergies No known active allergies Medications cholecalciferol [...] Encounters Date Type Department Care Team Description 11/29/2024 11:00 AM EST Treatment [address] [phone] Rizwan Duncan, HEAD OF ENGLISH Arrived 11/22/2024 11:00 AM EST Treatment [address] [phone] Turner Piper, HEAD OF ENGLISH Chronic midline low back pain, unspecified whether sciatica present (Primary Dx) 11/15/2024 11:00 AM EST Treatment [address] [phone] Lorna Marquis, PT Chronic midline low back pain, unspecified whether sciatica present (Primary Dx) 11/08/2024 11:00 AM EST Treatment [address] [phone] Lorna Marquis, PT Chronic midline low back pain, unspecified whether sciatica present (Primary Dx) 11/02/2024 11:30 AM EST Evaluation [facility] Outpatient Rehabilitation - [address] [phone] Lorna Marquis, PT Chronic midline low back pain, unspecified whether sciatica present (Primary Dx) 10/11/2024 11:30 AM EST Office Visit Internal Medicine - [address] [place] [phone] Vinny Davalos MD Encounter for annual physical [...] 10:30 AM EST Office Visit Pulmonolgy - [address] [phone] Katt Espino MD Chronic obstructive pulmonary disease, unspecified COPD type (CMS/HCC) (Primary Dx); Smoker; Lung nodules 09/19/2024 Telephone Obstetrics & Gynecology [address] [phone] Aneta Antoine [place] Results 09/14/2024 11:15 AM EST Office Visit Obstetrics & Gynecology [address] [phone] Latrice Jaquez CNM Encounter for well woman [...] CHOLECYSTECTOMY OTHER SURGICAL HISTORY 04/10/2024 Right PROCEDURE: AL SALPINGO-OOPHORECTOMY COMPL/PRTL UNI/BI SPX; COMMENT: Laparoscopic right [...] Info) Description 12/06/2024 11:00 AM EDT Treatment [facility] [address] [phone] Rizwan Duncan, HEAD OF ENGLISH 12/13/2024 11:00 AM EDT Treatment [facility] [address] [phone] Lorna Marquis, PT 01/23/2025 10:30 AM EDT Appointment [facility] Bone Density [address] [place] [address] 01/23/2025 11:15 AM EDT Appointment [facility] [address] [place] [address] 10/16/2025 11:30 AM EST Office Visit Internal Medicine - [place] [address] [phone] Vinny Davalos MD [address] [address] Health Maintenance Due Date Last Done Comments [...] general adult medical examination without abnormal findings HEPATITIS C SCREENING Routine 06/17/2022 from Last 3 Months or Most Recently Relevant to Health Maintenance Results * Thyroid stimulating hormone with reflex to free t4 and free t3 (10/11/2024 12:22 PM EST) TSH 1.02 0.40 - 4.00 mcIU/mL LAB CHEMISTRY METHOD 10/11/2024 3:32 PM [facility] Blood Venous blood specimen / Unknown Venipuncture / Unknown 10/11/2024 12:22 PM EST 10/11/2024 12:22 PM EST Vinny Davalos MD LAB BLOOD ORDERABLES Final Resul t [facility] [address] [place] [address], [place] [phone] * Lipid panel with reflex to direct LDL (10/11/2024 12:22 PM EST) Cholesterol 167 0 - 200 mg/dL LAB CHEMISTRY METHOD 10/11/2024 4:05 PM [facility] Triglycerides 97 0 - 150 mg/dL LAB CHEMISTRY METHOD 10/11/2024 4:05 PM [facility] HDL 49 >=40 mg/dL LAB CHEMISTRY METHOD 10/11/2024 4:05 PM [facility] LDL Calculated 99 0 - 100 mg/dL LAB CHEMISTRY METHOD 10/11/2024 4:05 PM [facility] VLDL Cholesterol Layo 19.4 mg/dL LAB CHEMISTRY METHOD 10/11/2024 4:05 PM [facility] Non HDL Chol. (LDL+VLDL) 118 <145 mg/dL LAB CHEMISTRY METHOD 10/11/2024 4:05 PM [facility] Chol/HDL Ratio 3.4 0.0 - 4.4 LAB CHEMISTRY METHOD 10/11/2024 4:[address] [facility] Blood Venous blood specimen / Unknown Venipuncture / Unknown 10/11/2024 12:22 PM EST 10/11/2024 12:22 PM EST Vinny Davalos MD LAB BLOOD ORDERABLES Final Resul t [facility] [address] [place] [address], * (ABNORMAL) CBC auto differential (10/11/2024 12:22 PM EST) WBC 8.7 4.8 - 10.8 K/mcL LAB HEMETOLOGY METHOD 10/11/2024 2:25 PM [facility] RBC 4.90(H) 3.80 - 4.80 M/mcL LAB HEMETOLOGY METHOD 10/11/2024 2:25 PM [facility] Hemoglobin 15.6 11.5 - 16.0 g/dL LAB HEMETOLOGY METHOD 10/11/2024 2:25 PM [facility] Hematocrit 47.0 35.0 - 47.0 % LAB HEMETOLOGY METHOD 10/11/2024 2:25 PM [facility] MCV 95.7 79.0 - 98.0 FL LAB HEMETOLOGY METHOD 10/11/2024 2:25 PM [facility] MCH 31.8 27.0 - 32.0 pcg LAB HEMETOLOGY METHOD 10/11/2024 2:25 PM [facility] MCHC 33.2 32.0 - 37.0 g/dL LAB HEMETOLOGY METHOD 10/11/2024 2:25 PM [facility] RDW 12.4 11.0 - 15.0 % LAB HEMETOLOGY METHOD 10/11/2024 2:25 PM [facility] Platelets 318 130 - 400 K/mcL LAB HEMETOLOGY METHOD 10/11/2024 2:25 PM [facility] MPV 11.5(H) 7.0 - 11.0 FL LAB HEMETOLOGY METHOD 10/11/2024 2:25 PM [facility] NRBC 0.0 <1.0 % LAB HEMETOLOGY METHOD 10/11/2024 2:25 PM [facility] NRBC Absolute 0.00 <0.10 K/mcL LAB HEMETOLOGY METHOD 10/11/2024 2:25 PM [facility] Neutrophils Relative 62.2 % LAB HEMETOLOGY METHOD 10/11/2024 2:25 PM [facility] Lymphocytes Relative 27.7 % LAB HEMETOLOGY METHOD 10/11/2024 2:25 PM [facility] Monocytes Relative 8.7 % LAB HEMETOLOGY METHOD 10/11/2024 2:25 PM [facility] Eosinophils Relative 0.8 % LAB HEMETOLOGY METHOD 10/11/2024 2:25 PM [facility] Basophils Relative 0.3 % LAB HEMETOLOGY METHOD 10/11/2024 2:25 PM [facility] Immature Granulocytes Relative 0.3 % LAB HEMETOLOGY METHOD 10/11/2024 2:25 PM [facility] Neutrophils Absolute 5.39 1.50 - 7.00 K/mcL LAB HEMETOLOGY METHOD 10/11/2024 2:25 PM [facility] Lymphocytes Absolute 2.40 1.00 - 5.00 K/mcL LAB HEMETOLOGY METHOD 10/11/2024 2:25 PM [facility] Monocytes Absolute 0.75 0.20 - 1.00 K/mcL LAB HEMETOLOGY METHOD 10/11/2024 2:25 PM [facility] Eosinophils Absolute 0.07 0.00 - 0.50 K/mcL LAB HEMETOLOGY METHOD 10/11/2024 2:[address] [facility] Basophils Absolute 0.03 0.00 - 0.20 K/Health system LAB HEMETOLOGY METHOD 10/11/2024 2:[address] [facility] Immature Granulocytes Absolute 0.03 0.00 - 0.03 K/Health system LAB HEMETOLOGY METHOD 10/11/2024 2:[address] [facility] Blood Venous blood specimen / Unknown Venipuncture / Unknown 10/11/2024 12:22 PM EST 10/11/2024 12:22 PM EST Vinny Davalos MD LAB BLOOD ORDERABLES Final Resul t Performing Organization Address City/[facility]/ZIP Co de Phone Number [facility] [address] [place] [address], * Vitamin D 25 hydroxy (10/11/2024 12:22 PM EST) Vit D, 25-Hydroxy 57.0 30.0 - 80.0 ng/mL LAB CHEMISTRY METHOD 10/11/2024 3:[address] [facility] Blood Venous blood specimen / Unknown Venipuncture / Unknown 10/11/2024 12:22 PM EST 10/11/2024 12:22 PM EST Vinny Davalos MD LAB BLOOD ORDERABLES Final Resul t [facility] [address] [place] [address], [place] [phone] * Parathyroid hormone intact (10/11/2024 12:22 PM EST) PTH 50.4 18.5 - 88.0 pcg/mL LAB CHEMISTRY METHOD 10/11/2024 5:[address] [facility] Blood Venous blood specimen / Unknown Venipuncture / Unknown 10/11/2024 12:22 PM EST 10/11/2024 12:22 PM EST us Vinny Davalos MD LAB BLOOD ORDERABLES Final Resul t Performing Organization Address City/[facility]/ZIP Co de Phone Number [facility] [address] [place] [address], [place] [phone] * Magnesium (10/11/2024 12:22 PM EST) [facility] Magnesium 2.0 1.9 - 2.6 mg/dL LAB CHEMISTRY METHOD 10/11/2024 3:[address] [facility] Blood Venous blood specimen / Unknown Venipuncture / Unknown 10/11/2024 12:22 PM EST 10/11/2024 12:22 PM EST us Vinny Davalos MD LAB BLOOD ORDERABLES Final Resul t Performing Organization Address [facility]/ZIP Co de Phone Number [facility] [address] [place] [address], [place] [phone] * Hemoglobin A1c (10/11/2024 12:22 PM EST) [facility] Hemoglobin A1C 5.1 <6.5 % LAB CHEMISTRY METHOD 10/11/2024 9:[address] [facility] Mean Bld Glu Estim. 100 mg/dL LAB CHEMISTRY METHOD 10/11/2024 9:[address] [facility] Blood Venous blood specimen / Unknown Venipuncture / Unknown 10/11/2024 12:22 PM EST 10/11/2024 12:22 PM EST us Vinny Davalos MD LAB BLOOD ORDERABLES Final Resul t Performing Organization Address City/[facility]/ZIP Co de Phone Number [facility] [address] [place] [address], [place] [phone] * Vitamin B12 (10/11/2024 12:22 PM EST) Pathologist [facility] Vitamin B-12 348 250 - 900 pcg/mL LAB CHEMISTRY METHOD 10/11/2024 4:05 PM [facility] Blood Venous blood specimen / Unknown Venipuncture / Unknown 10/11/2024 12:22 PM EST 10/11/2024 12:22 PM EST us Vinny Davalos MD LAB BLOOD ORDERABLES Final Resul t [facility] [address] [place] [address], [place] [phone] * (ABNORMAL) Comprehensive metabolic panel (10/11/2024 12:22 PM EST) Pathologist [facility] Sodium 136 133 - 145 mmol/L LAB CHEMISTRY METHOD 10/11/2024 4:05 PM [facility] Potassium 4.1 3.5 - 5.5 mmol/L LAB CHEMISTRY METHOD 10/11/2024 4:05 PM [facility] Chloride 104 96 - 110 mmol/L LAB CHEMISTRY METHOD 10/11/2024 4:05 PM [facility] CO2 27 21 - 32 mmol/L LAB CHEMISTRY METHOD 10/11/2024 4:05 PM [facility] Anion Gap 5 3 - 11 LAB CHEMISTRY METHOD 10/11/2024 4:05 PM [facility] Glucose 102(H) 70 - 100 mg/dL LAB CHEMISTRY METHOD 10/11/2024 4:05 PM [facility] BUN 10 5 - 25 mg/dL LAB CHEMISTRY METHOD 10/11/2024 4:05 PM [facility] Creatinine 0.75 0.50 - 1.10 mg/dL LAB CHEMISTRY METHOD 10/11/2024 4:05 PM [facility] eGFR 94 >=60 mL/min/1. 73m2 LAB CHEMISTRY METHOD 10/11/2024 4:05 PM [facility] Comment:Calculation based on the??Chronic Kidney Disease Epidemiology Collaboration (CKD-EPI) equation refit??without adjustment for race. BUN/Creatinine Ratio 13.3 LAB CHEMISTRY METHOD 10/11/2024 4:05 PM [facility] Calcium 11.6(H) 8.5 - 10.5 mg/dL LAB CHEMISTRY METHOD 10/11/2024 4:05 PM [facility] AST (SGOT) 9(L) 10 - 42 unit/L LAB CHEMISTRY METHOD 10/11/2024 4:05 PM [facility] ALT (SGPT) 13 10 - 60 unit/L LAB CHEMISTRY METHOD 10/11/2024 4:05 PM [facility] Alkaline Phosphatase 67 42 - 121 unit/L LAB CHEMISTRY METHOD 10/11/2024 4:05 PM [facility] Total Protein 7.7 6.0 - 8.0 g/dL LAB CHEMISTRY METHOD 10/11/2024 4:05 PM [facility] Albumin 4.4 3.2 - 5.0 g/dL LAB CHEMISTRY METHOD 10/11/2024 4:05 PM [facility] Total Bilirubin 0.5 0.0 - 1.4 mg/dL LAB CHEMISTRY METHOD 10/11/2024 4:05 PM [facility] Blood Venous blood specimen / Unknown Venipuncture / Unknown 10/11/2024 12:22 PM EST 10/11/2024 12:22 PM EST us Vinny Davalos MD LAB BLOOD ORDERABLES Final Resul t [facility] [address] [place] [address], [place] [phone] * (ABNORMAL) Culture urine (09/14/2024 11:31 AM EST) Culture, Urine 50,000-100,000 CFU/mL Escherichia coli ESBL(A) MARIA ELENA 09/17/2024 9:[address] [facility] Comment: Edited result: Previously reported [...] MICROBIOLOGY - GENERAL OR DERABLES Final Result [facility] [address] [place] [address], [place] [phone] * HPV with reflex genotype (09/14/2024 11:15 AM EST) HPV Negative Negative LAB MICROBIOLOGY METHOD 09/15/2024 1:[address] [facility] Brushing/Spatula Cervix uteri structure / Unknown 09/14/2024 11:15 AM EST 09/15/2024 7:29 AM EST Latrice Jaquez CNM LAB MOLECULAR DIAGNOSTICS ORD ERABLES Final Result [facility] [address] [place] [address], * Pap Smear (09/14/2024 11:15 AM EST) Interpretation Negative for intraepithelial lesion or malignancy 09/20/2024 10:39 AM [facility] General Categorization Negative 09/20/2024 10:39 AM [facility] Other Findings Atrophy 09/20/2024 10:39 AM [facility] Specimen Adequacy Satisfactory for evaluation 09/20/2024 10:39 AM [facility] Pap Methodology Liquid Based Pap Test 09/20/2024 10:39 AM [facility] Disclaimer The Pap test is a screening test which carries an inherent false negative rate. These test results should be correlated with the patient's clinical findings and history. This Pap test was processed using an automated screening system. Technical cytopathology services provided by [facility], at [address] [place] [address] (CLIA # [id number]/Gretchen Escamilla MD, Ethnology Teacher.) 09/20/2024 10:39 AM [facility] Console Pap Interpretation Reported 09/20/2024 10:39 AM [facility] Brushing/Spatula Cervix uteri structure / Unknown 09/14/2024 11:15 AM EST 09/15/2024 7:29 AM EST Latrice Jaquez CNM LAB CYTOLOGY ORDERABLES Final Result [facility] [address] [place] [address], * (ABNORMAL) POC Urine Auto W/O Micro (09/14/2024 11:11 AM EST) Leukocytes UA POC Positive(A) Negative Nitrite UA POC Negative Negative Urobilinogen UA POC Negative Negative Protein UA POC Positive(A) Negative PH UA POC 8.0 5.0 - 9.0 Blood UA POC Trace Negative, Trace Specific [place] UA POC 1.010 1.001 - 1.035 Ketones [...] to have osteoporosis by WHO criteria. The [facility] Department of Internal Medicine recommends using National [...] alternative screening schedule based on darwin Macdonald., [facility] October 16, 2011 for patients with osteopenia [...] to have osteoporosis by WHO criteria. The [facility] of Internal Medicinerecommends using National Osteoporosis [...] alternative screening schedule based on darwin Macdonald., [facility] for patients with osteopenia (based on [...] Date Last Indicated ESBL 09/14/2024 09/14/2024 Insurance [facility] Care Teams Beam Dyer Recessed Vat Relationship Specialty Start Date End Date Vinny Davalos MD [address] [place] [address] PCP - General Internal Medicine 04/25/22
--- OUTSIDE RECORDS SUMMARY | 2024-11-29 17:31 | XMS_ITS | Encounter Summary ---
Author Organization [facility] Address [address] [place] [address] Care Team Providers Care Accounts Receivable Accountant Name Role Phone Vinny Davalos MD Primary Care Provider [phone] Reason for Visit * Consultation (Routine) - Authorized Specialty Diagnoses / Procedures Referred By Contwilly t Referred To Contact Physical Therapy Diagnoses Chronic midline low back pain, unspecified whether sciatica present Vinny Davalos MD 175 [facility] [address] [place] [address] Phone: tel: fax: [address] [address] Phone: tel: fax: Referral ID Status Reason Start Date Expiration Date Visits Requested Visits Authorized [id number] Authorized Specialty Services Required 10/11/2024 10/11/2025 21 21 Encounter Details Date Type Department Care Team (Late st Contact Info) Description 11/22/2024 11:00 AM EST Treatment [facility] [address] [phone] Turner Piper, STONE ENGRAVER Chronic midline low back pain, unspecified whether [...] as of this encounter Progress Notes * Turner Piper PTA - 11/22/2024 11:00 AM EST [facility] - Outpatient PHYSICAL THERAPY DAILY TREATMENT NOTE - OP Date: 11/22/2024 Visit Number: 4 Patient Name: Lizabeth Pittman : 1970 Age: 54 y.o. Gender: female Diagnosis: ICD-10-CM ICD-9-CM 1. Chronic midline low back pain, unspecified whether sciatica present M54.50 724.2 G89.29 338.29 Date of Onset/Surgery: 11/02/2014 Referring Provider: Vinny Davalos MD Insurance: Payor: [employer] PLAN / Plan: [employer] MEDICAID / Product Type: *No Product type* / Patient Identified by: Turner Piper PTA Language: Speaks and understands Estonian as preferred language with no foreign language interpreter required Medications: Current Outpatient Medications [...] add Standing hip flexor and hamstring stretch 2 x 20 sec hold each in cage Standinghip ext/abd marching x 15 each with green tband H/L abd bracing with marching x 15 (B) Modality: IFC e-stim to bilateral low back (amplitude to tolerance=7) x 10 min with Home exercise program: Sidelying hip abduction x 7-10 each Supine bridge x 10, 5 sec hold Hooklying hamstring stretch strap (dog leash) 3 x 15-20 sec ASSESSMENT/Response to Treatment Good pt to monitor length of time she gets relief after heat/stim Patient Education: Education provided: home exercise program and monitor e-stim response Education Provided To: Patient utilizing Explanation and Printed Material mode(s) of education Response to Education: Verbal Understanding PLAN POC Development/Review: No Change in the Plan of Care; Participants: Patient Interventions Time Entry: Modalities: 10 min Therapeutic procedures: 20 Total Treatment Time: 30 Documentation completed by Turner Piper PTA documented in this encounter Plan of Treatment Upcoming Encounters Date Type Department Care Team (Late st Contact Info) Description 12/06/2024 11:00 AM EDT Treatment [facility] [address] [phone] Rizwan Duncan PTA 12/13/2024 11:00 AM EDT Treatment [facility] [address] [phone] Lorna Marquis, PT 01/23/2025 10:30 AM EDT Appointment [facility] Bone Density [address] [place] [address] 01/23/2025 11:15 AM EDT Appointment [facility] [address] [place] [address] 10/16/2025 11:30 AM EST Office Visit Internal Medicine - [place] [address] [phone] Vinny Davalos MD [address] [address] documented as of this encounter Visit Diagnoses Diagnosis Chronic midline low back pain, unspecified whether sciatica present- Primary documented in this encounter Additional Health Concerns Infection Onset Date Last Indicated Resolved Time ESBL 09/14/2024 09/14/2024 documented as of this encounter Care Teams Accounts Receivable Accountant Relationship Specialty Start Date End Date Vinny Davalos MD [address] [place] [address] PCP - General Internal Medicine 04/25/22 documented as of this encounter
--- OUTSIDE RECORDS SUMMARY | 2024-11-29 17:31 | XMS_ITS | Encounter Summary ---
Author Organization [facility] Address [address] [place] [address] Care Team Providers Care Brazing Furnace Feeder Name Role Phone Vinny Davalos MD Primary Care Provider [phone] Reason for Visit * Consultation (Routine) - Authorized Specialty Diagnoses / Procedures Referred By Contwilly t Referred To Contact Physical Therapy Diagnoses Chronic midline low back pain, unspecified whether sciatica present Vinny Davalos MD 175 [facility] [address] [place] [address] Phone: tel: fax: [address] [address] Phone: tel: fax: Referral ID Status Reason Start Date Expiration Date Visits Requested Visits Authorized [id number] Authorized Specialty Services Required 10/11/2024 10/11/2025 21 21 Encounter Details Date Type Department Care Team (Late st Contact Info) Description 11/08/2024 11:00 AM EST Treatment [facility] [address] [phone] Lorna Marquis PT Chronic midline [...] Marquis PT - 11/08/2024 11:00 AM EST [facility] - Outpatient PHYSICAL THERAPY DAILY TREATMENT NOTE - OP Date: 11/08/2024 Visit Number: 2 Patient Name: Lizabeth Pittman : 1970 Age: 53 y.o. Gender: female Diagnosis: ICD-10-CM ICD-9-CM 1. Chronic midline low back pain, unspecified whether sciatica present M54.50 724.2 G89.29 338.29 Date of Onset/Surgery: 11/02/2014 Referring Provider: Vinny Davalos MD Insurance: Payor: [employer] PLAN / Plan: [employer] MEDICAID / Product Type: *No Product type* / Patient Identified by: Lorna Marquis, SEAN Language: Speaks and understands Irish as preferred language with no barrel planer required Medications: Current Outpatient Medications on File [...] Chart Reviewed: Yes Pain: 6-7/ pre session, 2-3/ post session TREATMENT INTERVENTION: Therapeutic Exercise: Nustep [...] Info) Description 12/06/2024 11:00 AM EDT Treatment [facility] [address] [phone] Rizwan Duncan, MARGY 12/13/2024 11:00 AM EDT Treatment [facility] [address] [phone] Lorna Marquis, PT 01/23/2025 10:30 AM EDT Appointment [facility] Bone Density [address] [place] [address] 01/23/2025 11:15 AM EDT Appointment [facility] [address] [place] [address] 10/16/2025 11:30 AM EST Office Visit Internal Medicine - [place] [address] [phone] Vinny Davalos MD [address] [address] documented as of this encounter Visit Diagnoses Diagnosis Chronic midline low back pain, unspecified whether sciatica present- Primary documented in this encounter Additional Health Concerns Infection Onset Date Last Indicated Resolved Time ESBL 09/14/2024 09/14/2024 documented as of this encounter Care Teams Brazing Furnace Feeder Relationship Specialty Start Date End Date Vinny Davalos MD [address] [place] [address] PCP - General Internal Medicine 04/25/22 documented as of this encounter
--- OUTSIDE RECORDS SUMMARY | 2024-11-29 17:31 | XMS_ITS | Encounter Summary ---
Author Organization [facility] Address [address] [place] [address] Care Team Providers Care [employer] Consultant Name Role Phone Vinny Davalos MD Primary Care Provider [phone] Reason for Visit * Consultation (Routine) - Authorized Specialty Diagnoses / Procedures Referred By Contwilly t Referred To Contact Physical Therapy Diagnoses Chronic midline low back pain, unspecified whether sciatica present Vinny Davalos MD [address] [address] Phone: tel: fax: [address] [address] Phone: tel: fax: Referral ID Status Reason Start Date Expiration Date Visits Requested Visits Authorized [id number] Authorized Specialty Services Required 10/11/2024 10/11/2025 21 21 Encounter Details Date Type Department Care Team (Latest Contact Info) Description 11/02/2024 11:30 AM EST Evaluation [address] [address] Lorna Marquis PT Chronic midline [...] Marquis PT - 11/02/2024 11:30 AM EST [facility] - Outpatient PHYSICAL THERAPY EVALUATION Date: 11/02/2024 Visit Number: 1 Patient Name: Lizabeth Pittman : 1970 Age: 53 y.o. Gender: female Diagnosis: ICD-10-CM ICD-9-CM 1. Chronic midline low back pain, unspecified whether sciatica present M54.50 724.2 Ambulatory referral to Physical Therapy and Athletic Training G89.29 338.29 Date of Onset/Surgery: 11/02/2014 Referring Provider: Vinny Davalos MD Insurance: Payor: [employer] PLAN / Plan: [employer] / Product Type: *No Product type* / Patient identified by: Lorna Marquis PT Language: Speaks and understands Maori as preferred language with no events specialist required Chart Reviewed: Yes Medications: Current Outpatient [...] has a past medical history of Hyperparathyroidism ([facility]) (10/08/2022), Osteoporosis, Ovarian torsion (2023), Tobacco [...] Patient will improve lumbar ROM by 25%. Turkey Picker Goals (will be achieved in 8-12 weeks) [...] restrictions Documentation completed by Lorna Marquis PT [address] [address] Dept: [phone] Dept PATIENT NAME: Lizabeth Pittman : 1970 [...] Info) Description 12/06/2024 11:00 AM EDT Treatment [facility] [address] [phone] Rizwan Duncan PTA 12/13/2024 11:00 AM EDT Treatment [facility] [address] [phone] Lorna Marquis, SEAN 01/23/2025 10:30 AM EDT Appointment [facility] [address] [place] [address] 01/23/2025 11:15 AM EDT Appointment [facility] [address] [place] [address] 10/16/2025 11:30 AM EST Office Visit Internal Medicine [facility] 175 [facility] [address] [place] [phone] Vinny Davalos MD 175 [facility] [address] [place] [address] documented as of this encounter Visit Diagnoses [...] documented as of this encounter Care Teams [employer] Consultant Relationship Specialty Start Date End Date Vinny Davalos MD [address] [place] [id number] PCP - General Internal Medicine 04/25/22 documented as of this encounter
== END 2024-11-29 13:52 | disposition home or self-care (01) ==
LOC: HO.MRI 13:51
PROVIDERS: PCP Student in an Organized Health Care Education/Training Program; Visit Provider Psychiatry & Neurology Neurology
DX: R29.2 Abnormal reflex (principal); M54.50 Low back pain, unspecified; G89.29 Other chronic pain; R20.0 Anesthesia of skin; M48.00 Spinal stenosis, site unspecified
CPT/HCPCS: 72148

== ENCOUNTER 2024-12-19 13:23 | Outpatient (AMB) | payer OTHER, SELFPAY ==
--- NOTE | 2024-12-19 13:23 | A.OFFVIS_ITS ---
Intake Visit Reasons: Follow up Restless leg Syndrome(per ) Intake Note: Patient following up on MRI results, elias Mejia pcp's office was called 11/30 to inform of results Allergies No Known Allergies Allergy (Verified 12/19/24 13:24) HPI Comments Details: 54y/o Right handed female calls for follow up of paresthesias and numbness in her legs .Lumbar spine MRI showed~ Multilevel lumbar spondylosis resulting in grade 1 retrolisthesis L1 to, L2-3 and L3-4 levels and central spinal canal and bilateral neuroforamina stenosis at L4-5, L3-4 and to a lesser extent L2-3 likely encroaching the neural elements. Left-sided retroperitoneal mass and nodular lesions in the adrenal glands. Malignancy should be considered. History from last visit- she reports abnormal sensations in her legs - numbness everytime she sits or lies down . she denies tingling. sometimes she has discomfort in her thighs. No creepy crawly sensation. Moving her legs helps. It is worse when she sleeps and she needs to have a pillow between her legs and it wakes her up often she has chronic back pain and some neck pain . she denies any abnormal jerks in her legs when she wakes up in the middle of the night - she tries to move her legs and hands and tries to sleep. she has frequent urination and urgency . [facility] Medical History (Updated 12/19/24 @ 13:56 by Kathi Mejia MD) Retroperitoneal mass Lumbar spondylosis Spinal stenosis, other region Back pain Hyperreflexia Numbness Restless leg syndrome Osteoporosis Chronic midline back pain Hyperparathyroidism Vitamin D deficiency Tobacco abuse Surgical History History of tonsillectomy and adenoidectomy History of right salpingo-oophorectomy H/O section History of cataract surgery Hx of cholecystectomy Family History Father HTN (hypertension) Diabetes Social History Alcohol intake: current Comment: occasional Patient Tobacco Use Status: Current everyday Tobacco user Physical Exam Const General: cooperative Orientation/consciousness: patient oriented x3 Neuro General: patient oriented x3 Telehealth Telehealth Telehealth Platform: Telephone Location of provider rendering services: practice address Location of patient: address on file Patient Identification confirmed using: Name, : Yes Telehealth method: voice only Patient verbally consented to treatment: Yes Patient verbally consented to billing insurance company: Yes Patient informed of any privacy concerns related to visit: Yes Minutes spent on Phone/Video with Pt.: 16 Results Reviewed Results Reviewed: cc: Kathi Mejia MD; Vinny Davalos MD~ EXAMINATION: MR LUMBAR SPINE WITHOUT CONTRAST CLINICAL INFORMATION: Abnormal reflux COMPARISON: None available. TECHNIQUE: MRI of the lumbar spine was obtained using routine sequences without contrast. FINDINGS: Last rib-bearing vertebra labeled T12. Bone marrow inhomogeneity. There is mild bone marrow STIR signal in the endplates of L4-5, decreased intervertebral disc height and subchondral cyst formation. Multilevel marginal osteophyte formation more conspicuous at L1 to and L4-5 level. Focal hyperintense T2 signal in the posterior intervertebral discs from L2-3 to L4-5 likely annular fissures. Grade 1 retrolisthesis L1 to, L2-3 and L3-4 levels. Conus medullaris ends at pedicle of L1 with normal signal. T12-L1: There is left Subarticular broad-based disc herniation. No compression upon neural elements. L1-2: Broad-based disc bulging. Facet joint hypertrophy. Reduced AP diameter of the thecal sac. No compression upon neural elements. L2-3: Right subarticular disc protrusion. Facet joint and ligamentum flavum hypertrophy. Reduced AP diameter of the thecal sac and the neural foramina. L3-4: Broad-based disc bulging. Facet joint hypertrophy. Reduced AP diameter of the thecal sac and the neural foramina likely encroaching the neural elements. L4-5: Broad-based disc bulging. Facet joint and ligamentum flavum hypertrophy. Reduced AP diameter of the thecal sac and the neural foramina encroaching the neural elements both thecal sac and the exiting nerve roots. L5-S1: Broad-based disc bulging. Facet joint hypertrophy. Reduced AP diameter of the thecal sac and the neural foramina. There is a 4 cm isointense T1 and T2 mass in the left retroperitoneum just anterior to the lower pole left kidney and below the left renal vessels. There is a 2.2 cm nodule in the right adrenal gland. There is a 1.9 cm nodule in the left adrenal gland. Cystic lesions in the kidneys. . MR/MR lumbar spine wo con IMPRESSION: Multilevel lumbar spondylosis resulting in grade 1 retrolisthesis L1 to, L2-3 and L3-4 levels and central spinal canal and bilateral neuroforamina stenosis at L4-5, L3-4 and to a lesser extent L2-3 likely encroaching the neural elements. Left-sided retroperitoneal mass and nodular lesions in the adrenal glands. Malignancy should be considered. Assessment & Plan Assessment & Plan (1) Lumbar spondylosis: Code(s): M47.816 - Spondylosis without myelopathy or radiculopathy, lumbar region Category: Medical (2) Retroperitoneal mass: Comment: incidental Code(s): R19.00 - Intra-abdominal and pelvic swelling, mass and lump, unspecified site Category: Medical Plan Reviewed MRI L spine reports with patient The MRI report was faxed to her PCP Dr.Famidha Davalos and message left about incidental adrenal mass that needs urgent f/u evaluations. I will hold further neurological evaluations until the adrenal mass has been investigated by PCP Coding Level of Care Code Tele Est Pt Level 4 (03986) Diagnoses Lumbar spondylosis M47.816 Retroperitoneal mass R19.00
== END 2024-12-21 08:28 | disposition home or self-care (01) ==
LOC: HO.HSMS 13:23
PROVIDERS: PCP Student in an Organized Health Care Education/Training Program; Visit Provider Psychiatry & Neurology Neurology
DX: M47.816 Spondylosis without myelopathy or radiculopathy, lumbar region (principal); R19.00 Intra-abdominal and pelvic swelling, mass and lump, unspecified site
CPT/HCPCS: 99214

== ENCOUNTER → 2024-12-19 13:23 | Outpatient (BNVA) | payer OTHER, SELFPAY | PROVIDERS: PCP Student in an Organized Health Care Education/Training Program; Visit Provider Psychiatry & Neurology Neurology | DX: R29.2 Abnormal reflex (principal); M54.50 Low back pain, unspecified; G89.29 Other chronic pain; R20.0 Anesthesia of skin; M48.00 Spinal stenosis, site unspecified; M54.2 Cervicalgia ==